=== PATIENT | female | born 1970 | race Caucasian/White ===

== ENCOUNTER 2020-06-13 08:29 | Inpatient (IN) | payer MEDICAID ==
[~2020-06-13] VITALS: Ht 177.8 cm; Wt 75.4 kg
[2020-06-13 08:32] VITALS: BP 179/92
[2020-06-13 09:17] LABS: ABSOLUTE BASOPHILS 0.1 thou/uL (0.0-0.2); ABSOLUTE EOSINOPHILS 0.1 thou/uL (0.0-0.7); ABSOLUTE LYMPHOCYTES 1.5 thou/uL (0.8-5.3); ABSOLUTE MONOCYTES 0.3 thou/uL (0.0-1.2); ABSOLUTE NEUTROPHILS 3.3 thou/uL (1.6-8.1); BASOPHILS 1.2 %; EOSINOPHILS 2.4 %; HEMATOCRIT 23.9 % (37.0-47.0); HEMOGLOBIN 7.8 gm/dL (12.0-15.0); LYMPHOCYTES 28.4 %; MCH 30.2 pg (26.0-34.0); MCHC 32.6 g/dL (28.0-37.0); MCV 92.4 fL (80.0-100.0); MONOCYTES 5.8 %; MPV 7.4 fl. (7.2-11.1); NUCLEATED RBCS 0 /100WBC; PLATELET COUNT* 286 thou/uL (150-400); POLYS 62.2 %; RBC 2.59 mil/uL (4.20-5.00); RDW-CV 15.7 % (10.5-14.5); WBC 5.4 thou/uL (4.0-11.0)
[2020-06-13 09:26] LABS: CALCIUM 7.4 mg/dL (8.5-10.1); CREATININE 3.2 mg/dL (0.6-1.3); POTASSIUM 4.4 mmol/L (3.5-5.1)
[2020-06-13 09:27] LABS: APTT 27.8 Seconds (25.0-31.3); PROTIME 11.1 Seconds (9.20-11.50)
[2020-06-13 09:31] LABS: ALBUMIN 2.3 g/dL (3.4-5.0); TOTAL BILIRUBIN 0.2 mg/dL (<0.1-1.0); TOTAL PROTEIN 6.1 g/dL (6.4-8.2)
[2020-06-13] MEDS ORDERED: PROTONIX40 M2 PO (09:46)
[2020-06-13] MEDS ORDERED: LEVO-T25 MCG PO (09:47)
[2020-06-13] MEDS ORDERED: VITAMIN D210 MCG PO (09:47)
[2020-06-13] MEDS ORDERED: SERTRALINE HCL100 MG PO (09:48)
[2020-06-13] MEDS ORDERED: LIPITOR 20 MG T20 M1 PO (09:48)
[2020-06-13] MEDS ORDERED: CARVEDILOL25 MG PO (09:48)
[2020-06-13] MEDS ORDERED: FUROSEMIDE 20 M20 MG PO (09:49)
[2020-06-13] MEDS ORDERED: SODIUM BICARBO650 M3 PO (09:49)
[2020-06-13] MEDS ORDERED: FOLIC ACID1 MG PO (09:49)
[2020-06-13] MEDS ORDERED: MIRTAZAPINE7.5 MG PO (09:50)
[2020-06-13] MEDS ORDERED: FAMOTIDINE 20 M20 MG PO (09:50)
[2020-06-13] MEDS ORDERED: DESYREL150 MG PO (09:50)
[2020-06-13] MEDS ORDERED: NOVOLOG100 UNIT/M SUBQ (09:50)
[2020-06-13] MEDS ORDERED: HUMALOG100 UNIT/1 SUBQ (09:51)
[2020-06-13] MEDS ORDERED: LANTUS SUBQ (09:51)
--- NOTE | 2020-06-13 10:27 | EKG ---
[place] [address] ELECTROCARDIOGRAM REPORT Name: MARYAN FERNANDO Room: [place] [address] ADM IN [facility]#: [id number] Admission: 06/13/20 Attend Phys: Jt Hinds Discharge: Date of : 72 Date of Service: 06/13/20 0846 Report #: [id number] THIS REPORT FOR: //name// [facility] ED Test Date: 2020-06-13 Test Time: 08:46:00 Pat Name: MARYAN FERNANDO Department: Room: [facility] Gender: F Referral Coordinator: MARCELINA : 1970 Requested By: Norris Pandya Order Number: [id number] MD: De Iniguez Measurements Intervals [place] Rate: 71 P: 33 MO: 172 QRS: 28 QRSD: 94 T: 50 QT: 444 QTc: 483 Interpretive Statements Sinus rhythm Consider anterior infarct No previous ECG available for comparison Electronically Signed On 06-13-2020 10:27:28 CHOCOLATE MOLDER by De Iniguez [email or web address] <ELECTRONICALLY SIGNED> By: De Iniguez MD, [facility] 06/13/20 1027 5 5 De Iniguez MD, [facility] /EPI
[2020-06-13 12:33] VITALS: BP 132/82
[2020-06-13 13:50] VITALS: BP 142/89
--- NOTE | 2020-06-13 18:53 | NUR ---
PATIENT ARRIVED FROM ER THIS AFTERNOON. PATIENT SETTLED TO ROOM. PATIENT HAD COMPLAINTS OF LEFT HIP PAIN, TREATED PARTIALLY WITH FENTANYL. HISTORY, ASSESSMENT AND VITALS OBTAINED AND CHARTED. PATIENT IS IN SURGERY AT THIS TIME.
[2020-06-13 19:44] VITALS: BP 159/89
[2020-06-14 00:27] VITALS: BP 122/78
[2020-06-14 05:50] VITALS: BP 125/78
[2020-06-14 06:08] LABS: HEMOGLOBIN 5.5 gm/dL (12.0-15.0)
[2020-06-14 06:09] LABS: HEMATOCRIT 17.1 % (37.0-47.0)
[2020-06-14 08:05] VITALS: BP 131/77
--- NOTE | 2020-06-14 08:20 | NUR ---
ASSUMED CARE OF PT AT APPROX 1935, PT DROWSY D/T ANESTHSIA BUT ORIENTED, VSS ON 3L NC, PAIN MEDS REQUESTED AND GIVEN ORDERED. AT APPRX 2222 DR. AVILA CONFIRMED YOUR CALL MESSAGE OF DR. GRECO DEFERING MANAGEMENT OF DVT PROPHYLAXIS TO THE MEDICINE TEAM D/T DIALYSIS REGIMAN. AT 0604 NOTIFIED BY LAB OF PT Hgb OF 5.5 AND Hct OF 17.1, DR. AVILA CONTACT AT 0610 AND ORDER GIVEN FOR INFUSION OF 2 UNITS PRBC. DAY SHIFT INFORMED TO CONTACT DIALYSIS WHEN BLOOD PRODUCT READY FOR PHOTOGRAPHY COORDINATOR - DIALYSIS WILL INFUSE BLOOD DURING DIALYSIS TX. REPORT GIVEN AND CARE OF PATIENT TRANSFER TO DAY SHIFT NURSE AT APPROX 0715.
[2020-06-14 11:02] LABS: HEMATOCRIT 23.1 % (37.0-47.0); HEMOGLOBIN 7.8 gm/dL (12.0-15.0)
--- NOTE | 2020-06-14 13:08 | NUR ---
Nutrition: Pt admitted with Lt hip FX. Consult received for diabetes/renal. Pt was out of room at time of visit; spoke with VENKATA Blanca. She stated pt is tolerating diet, but doesn't like the food so far. Pt is currently on Regular diet, but should be on Renal or CHO count. RN agreed to restricting diet to at least CHO controlled. Hopeful pt will find food choices she will eat. Did not restrict all the way to renal diet for pt preference. Meds noted. Labs: alb 2.3, prealb 17.2, BG 200s, Hgb 7.8. ESRD on HD is not a new DX. Wt: 166#. RD available for nutrition educ if pt desires. Consider Mild risk at this time.
[2020-06-14 13:30] LABS: CALCIUM 7.3 mg/dL (8.5-10.1); CREATININE 3.7 mg/dL (0.6-1.3); POTASSIUM 4.5 mmol/L (3.5-5.1)
[2020-06-14 13:33] LABS: MAGNESIUM 1.8 mg/dL (1.8-2.4)
--- NOTE | 2020-06-14 14:11 | CON ---
[address] [address] CONSULTATION Name: MARYAN FERNANDO Room: [address] IN [facility]#: [id number] Admission: 06/13/20 Attend Phys: Fabien Moulton Discharge: Date of : 72 Report #: [id number] THIS REPORT FOR: //name// cc: ROSELYN - No family physician/PCP ROSELYN - No family physician/PCP ~ DATE OF SERVICE: 06/13/2020 REQUESTING PHYSICIAN: Dr. Alonso. REASON FOR CONSULTATION: End-stage renal disease. HISTORY OF PRESENT ILLNESS: The patient is a 50-year-old female with medical history significant for end-stage renal disease. She presented after she fell. She landed on her head and back and on her hip. Workup showed that she had a left femoral intertrochanteric fracture. PAST MEDICAL HISTORY: 1. End-stage renal disease. 2. Diabetes mellitus type 2. 3. History of hypertension. SOCIAL HISTORY: No tobacco or alcohol abuse. FAMILY HISTORY: Noncontributory. REVIEW OF SYSTEMS: Positive for left hip pain. PHYSICAL EXAMINATION: GENERAL: Awake, alert. VITAL SIGNS: Reviewed. HEENT: Pupils round. NECK: Supple. LUNGS: Clear. CARDIOVASCULAR: Regular rate. ABDOMEN: Soft. LABORATORY DATA: Reviewed. ASSESSMENT: 1. End-stage renal disease. She was dialyzed yesterday. Dialysis Wednesday, Wednesday, and Wednesday schedule. 2. Left femoral fracture. 3. Hypertension. [facility] [address] [place] [address] CONSULTATION Name: MARYAN FERNANDO Room: [address] IN [facility]#: [id number] Admission: 06/13/20 Attend Phys: Fabien Moulton Discharge: Date of : 72 Report #: [id number] PLAN: Dialysis tomorrow. Surgical treatment per orthopedic surgeon. <ELECTRONICALLY SIGNED> By: Chris Orosco MD 06/14/20 1411 1440 [id number] Orosco MD /nt
--- NOTE | 2020-06-14 14:43 | NUR ---
Pt is A&O. Resides at home with her mom. Independent. Pt has a walker, no home o2. No hx of HH or SNF. Pt states that she fell in the middle of the night but does not remember how she feel, Pt stated that her mom found her on the floor the following morning. Therapies to see. Pt only has [place] CAN, so if she needs anything at dc, she will only qualify for a HH nurse or ARU. Pt's PCP is Dr Zavala at [facility]. Following for dc needs.
[2020-06-14 16:00] VITALS: BP 148/88
--- NOTE | 2020-06-14 17:04 | NUR ---
PATIENT RESTING IN BED. PATIENT HAS ANXIETY ABOUT HOSPITAL SITUATION AND IS TEARFUL AT TIMES. PATIENTHAS COMPLAINTS OF PAIN TO LEFT HIP, TREATED ADEQUATELY WITH MORPHINE. PATIENT WORKED WITH PHYSICAL THERAPY THIS AFTERNOON. PATIENT HAD DIALYSIS THIS AM WITHOUT INCIDENT. PATIENT HAD 2 UNITS BLOOD TRANSFUSED WITH DIALYSIS. PATIENT HAS GOOD APPETITE. PATIENT DENIES ANY NEEDS AT THIS TIME. CALL LIGHT WITHIN REACH.
[2020-06-14 20:00] VITALS: BP 163/92
[2020-06-15 06:33] LABS: HEMATOCRIT 22.2 % (37.0-47.0); HEMOGLOBIN 7.6 gm/dL (12.0-15.0)
--- NOTE | 2020-06-15 07:40 | NUR ---
ASSUMED PT'S CARE @ 1900. ALERT AND ORIENTED. VSS ON 2L. O2 TURNED DOWN TO 1L. SATTING IN HIGH 90'S. PRN PAIN MEDS GIVEN THIS SHIFT. PT CAN BE VERY ANXIOUS. INCONTINENT OF BLADDER THIS SHIFT. DID USE THE BSC ONE TIME. VERY PAINFUL TRANSFER PER PT. PT SLEPT OFF AND ON. PT'S BG LOW IN 30'S THIS AM. HYPOGLYCEMIA PROTOCOL IN PLACE. BG IS 90 NOW. Q2 TURN. STEVE HOSE IN PLACE. SCD'S IN PLACE. FALL PRECAUTIONS IN PLACE. CALL LIGHT WITHIN REACH. WILL CONTINUE TO MONITOR.
[2020-06-15 15:51] VITALS: BP 110/66
--- NOTE | 2020-06-15 16:40 | NUR ---
Pt remained A&O x4 for entire shift. Vital signs stable. Pt taken off O2 and sat 96%. Pt is pleasant with staff but resistant to getting out of bed. Pt given PRN IV morphine for pain control. Pt has had poor diet today and not wanting to eat much, but patient states she has a poor diet at home as well. Pt Blood Glucose was low (between 67-97) throughout the day. Pt was encouraged by nursing staff to eat snacks and more during meals. Dr. Hinds notified of low trends, no orders received. Pt refusing to get up to chair for dinner. Bed in low position, siderails up, call light within reach. Will continue to monitor.
--- NOTE | 2020-06-15 16:51 | NUR ---
PATIENT PARTICIPATED IN THERAPY THIS SHIFT. PATIENT ENCOURAGED TO SIT IN CHAIR THIS EVENING FOR DINNER. PATIENT STATED SHE WAS NOT GETTING UP AGAIN THIS EVENING. PATIENT EDUCATED ON THE IMPORTANCE OF ACTIVITY AFTER SURGERY. PATIENT REFUSED AGAIN. PATIENT EDUCATED AND ENCOURAGED ON IS, PATIENT WAS COMPLIANT WITH THIS.
[2020-06-15 20:00] VITALS: BP 113/64
--- NOTE | 2020-06-16 05:53 | NUR ---
ASSUMED PT'S CARE @ 1900. ALERT AND ORIENTED. VSS ON RA. OCCASSIONAL O2 DROP BUT DOES NOT SEEM TO BE TAKING ENOGUH DEEP BREATH. DEEP BREATHING ENCOURAGED. USE OF IS ENCOURAGED. PT PUT ON 1L O2 TO HELP BOOST O2 SAT. PAIN MEDS GIVEN THIS SHIFT. FALL PRECAUTION IN PLACE. CALL LIGHT WITHIN REACH. HOURLY ROUNDINGS MADE. WILL CONTINUE TO MONITOR.
[2020-06-16 07:45] VITALS: BP 114/59
[2020-06-16 15:53] VITALS: BP 110/62
--- NOTE | 2020-06-16 17:01 | NUR ---
Pt remained A&O x4 for entire shift. Pt requested mark hose be taken off this morning. Skin was assessed and lotion applied. Mark hose were put back in place a couple of hours later. Pt up to bedside commode with physical therapy this morning, then in to the chair for breakfast. Pt stayed in bed until after luuch, about 4 hours. Pt tolerated chair well. Pt only needed Morphine 4mg 2x today. Pt's appetite much better, glucose stable. Pt's SCD in place. Bed is in low position, side rails up, call light within reach. Will continue to monitor.
[2020-06-16 20:00] VITALS: BP 117/67
[2020-06-17 04:59] LABS: ABSOLUTE EOSINOPHILS 0.3 thou/uL (0.0-0.7); ABSOLUTE LYMPHOCYTES 1.1 thou/uL (0.8-5.3); ABSOLUTE MONOCYTES 0.5 thou/uL (0.0-1.2); ABSOLUTE NEUTROPHILS 4.2 thou/uL (1.6-8.1); BASOPHILS 0.7 %; EOSINOPHILS 4.3 %; HEMATOCRIT 20.6 % (37.0-47.0); MCH 30.5 pg (26.0-34.0); MCHC 33.6 g/dL (28.0-37.0); MCV 90.8 fL (80.0-100.0); MONOCYTES 7.6 %; MPV 7.7 fl. (7.2-11.1); NUCLEATED RBCS 0 /100WBC; PLATELET COUNT* 203 thou/uL (150-400); POLYS 69.4 %; RBC 2.26 mil/uL (4.20-5.00); RDW-CV 15.4 % (10.5-14.5)
[2020-06-17 05:12] LABS: HEMOGLOBIN 6.9 gm/dL (12.0-15.0)
[2020-06-17 05:16] LABS: CALCIUM 7.4 mg/dL (8.5-10.1); CREATININE 4.7 mg/dL (0.6-1.3); POTASSIUM 4.3 mmol/L (3.5-5.1)
--- NOTE | 2020-06-17 05:44 | NUR ---
ASSUMED PT'S CARE @ 1900. ALERT AND ORIENTED. VSS ON 2L 02. MEDS GIVEN PER EMAR. PT SLEPT VERY WELL THIS SHIFT. INCONTINENT OF BLADDER. NO BM NOTED THIS SHIFT. L EJ IV WITH FLUIDS INFUSING PER EMAR. PT AGREED TO SOME TURNS. FALL PRECAUTION IN PLACE. THIS AM HGB LOW AT 6.9. ONCALL DOC PAGED. AWAITING NEW ORDERS. WILL CONTINUE TO MONITOR.
[2020-06-17] MEDS ORDERED: OXYCODONE HCL 55 MG PO (10:38)
[2020-06-17] MEDS ORDERED: VOLTAREN GEL 1100 G2 TOP (10:38)
[2020-06-17] MEDS ORDERED: NEURONTIN 300M300 M2 PO (10:38)
[2020-06-17] MEDS ORDERED: METAMUCIL PACK3.4 GM PO (10:38)
[2020-06-17] MEDS ORDERED: LORAZEPAM 0.50.5 MG PO (10:38)
[2020-06-17] MEDS ORDERED: PAIN RELIEVER500 MG PO (10:38)
[2020-06-17] MEDS ORDERED: CYCLOBENZAPRINE10 MG PO (10:38)
--- NOTE | 2020-06-17 12:11 | NUR ---
PUT IN REHAB CONSULT TODAY. BHAVNA/JEFFERY SAID REHAB WILL EVAL PT. HER TODAY. IF GOOD CANDIDATE WILL SUBMIT FOR INSURANCE AUTH.
--- NOTE | 2020-06-17 12:56 | OP ---
[address] [address] OPERATIVE REPORT Name: MARYAN FERNANDO Room: [address] IN [facility]#: [id number] Admission: 06/13/20 Attend Phys: Fabien Moulton Discharge: Date of : 72 Report #: [id number] THIS REPORT FOR: //name// cc: ROSELYN - No family physician/PCP ROSELYN - No family physician/PCP ~ CC: ROSELYN physician/PCP Jt Hinds DICTATED BY: Kike Shipman DO DATE OF SERVICE: 06/13/2020 ADDENDUM The patient was successfully extubated and transferred off the operative table and to PACU in stable condition. I attest that Dr. Steve Truong was present in the operative suite throughout all critical aspects of this case. <ELECTRONICALLY SIGNED> By: Clive Najera DO 06/17/20 1256 2207 [id number] Truong DO /nt
--- NOTE | 2020-06-17 12:56 | OP ---
[address] [address] OPERATIVE REPORT Name: MARYAN FERNANDO Room: [address] IN [facility]#: [id number] Admission: 06/13/20 Attend Phys: Fabien Moulton Discharge: Date of : 72 Report #: [id number] THIS REPORT FOR: //name// cc: ROSELYN - Shelly family physician/PCP ROSELYN - No family physician/PCP ~ CC: [facility] physician/PCP Jt Hinds DICTATED BY: Kike Shipman DO DATE OF SERVICE: 06/13/2020 PREOPERATIVE DIAGNOSIS: Left displaced comminuted intertrochanteric femur fracture. OPERATION PERFORMED: Open reduction and internal fixation left hip with cephalomedullary nail. IMPLANTS: Tyrone gamma nail 10 x 170 mm and 40 mm distal locking screw. SURGEON: Steve Truong D.O. ASSISTANTS: Kike Shipman D.O. and Kike Gay D.O. ANESTHESIA: General. SPECIMENS: None. ESTIMATED BLOOD LOSS: 50 mL. COMPLICATIONS: None. CONDITION: The patient is stable to PACU. ANTIBIOTICS: 2 g Ancef IV preop. DRAINS: None. FLUIDS: Crystalloid per Anesthesia. INDICATIONS FOR SURGERY: This patient is a 50-year-old female who sustained a ground-level fall earlier today. She noted immediate onset of left hip pain and an inability to bear weight on her left lower extremity. She was subsequently brought to the Emergency Department where radiographs were obtained and demonstrated a left intertrochanteric femur fracture that was displaced and comminuted in nature. She had no notable open skin wounds over this area, but [address] [place] [address] OPERATIVE REPORT Name: MARYAN FERNANDO Room: [address] IN [facility].#: [id number] Admission: 06/13/20 Attend Phys: Fabien Moulton Discharge: Date of : 72 Report #: [id number] slight ecchymosis was noted on the lateral aspect of her thigh. We discussed surgical fixation. Risks, benefits, alternatives and possible complications were discussed at length with the patient and she is agreeable to proceed with operative fixation. Of note, she has a past medical history consistent with end-stage renal disease and is on dialysis. DESCRIPTION OF THE PROCEDURE: This patient was met in the preoperative area. The correct site of the left lower extremity was marked. Consent was obtained both verbally and written. She was transferred to the operative suite. She was given the benefit of general anesthesia and then transferred onto a well-padded Ortley table and secured to the table. The left leg was placed in an appropriately sized boot and secured and the right leg was placed in the leg carter. Fluoroscopy was then used to aid in the reduction using the Ortley table with a combined traction, adduction and internal rotation technique. Once adequate reduction of the fracture was obtained, the left hip was then sterilely prepped and draped in the normal sterile fashion. A timeout was performed to identify the correct the patient, procedure and operative site. All in the room were in agreement. The procedure began with an incision just proximal to the tip of the greater trochanter. We then used a guidewire to identify the starting point with fluoroscopy imaging. We then used the opening reamer. The nail was then placed in the appropriate position and confirmed with orthogonal fluoroscopy. An incision was then made for the lag screw using the targeting guide. We then used a guidewire into the femoral neck and head. The correct position of this was confirmed, we then reamed for a 95-mm screw. The screw was then placed through the nail and into the head and neck using the assistance of the targeting arm connected to the nail. This was then secured with the set screw placed at the proximal aspect of the gamma nail and this was secured and determined to lock the lag screw in place rotationally. The distal locking screw site was then identified using the targeting guide. An incision was made through the skin and fascia to the level of the bone with a 15-blade scalpel. A drill was used through the targeting guide to create the hole for the static distal interlocking screw. This measured 40 mm and was then placed appropriately with good bicortical fixation. Final radiographs were obtained and saved. The incisions were copiously irrigated with normal saline. The deep fascia of the proximal wound was closed with a #1 Vicryl in interrupted [id number] fashion. We then reapproximated the subcutaneous tissue with 2-0 Monocryl in a simple interrupted and inverted fashion followed by kiel at the level of the skin. Sterile dressings were then applied. She tolerated this procedure well without any complications. Anesthesia was reversed per the Anesthesia team. She was successfully extubated and transferred off the operative table. <ELECTRONICALLY SIGNED> By: Clive Najera DO 06/17/20 1256 2205 [id number] Truong DO /rene
[2020-06-17 15:43] VITALS: BP 104/74
--- NOTE | 2020-06-17 18:40 | NUR ---
PATIENT ALERT AND ORIENTED X 4. VITAL SIGNS STABLE ON ROOM AIR. UP MAX ASSIST TO THE BEDSIDE COMODE. IV PATENT WITH FLUIDS INFUSING PER MAR. DENIES NAUSEA AT THIS TIME. PAIN BEING MANAGED WITH PO AND IV MEDICATION. HAD DIALYSIS TODAY AND 1.5 LITERS REMOVED. PATIENT ALSO RECEIVED ONE UNIT OF BLOOD IN DIALYSIS. DRESSING TO LEFT HIP DRY AND INTACT. HOURLY ROUNDS MAINTAINED THROUGHOUT THE SHIFT. CALL LIGHT WITHIN REACH. NURSING WILL CONTINUE TO MONITOR.
[2020-06-17 21:15] VITALS: BP 128/68
[2020-06-17 23:36] VITALS: BP 107/57
[2020-06-18 05:56] LABS: HEMATOCRIT 24.8 % (37.0-47.0); HEMOGLOBIN 8.3 gm/dL (12.0-15.0)
[2020-06-18 06:16] VITALS: BP 132/69
--- NOTE | 2020-06-18 07:35 | NUR ---
PT RECEIVING IV PAIN MED AT HS WITH GOOD RELIEF. L HIP DRSG CDI, EDEMATOUS. STEVE HOSAshleigh BLE. UP WITH ASSIST BSC. LEJ IVF INFUSING PER PUMP. R CHEST TESSIO DIALYSIS CATH. AM LABS. ROOM AIR SAT 96% OVERNIGHT. AOX4, ABLE TO USE CALL LITE AND MAKE NEEDS KNOWN.
[2020-06-18 07:40] VITALS: BP 133/94
[2020-06-18 14:30] VITALS: BP 141/84
--- NOTE | 2020-06-18 14:45 | NUR ---
PATIENT WAS TALKING WITH NURSE TECH AND PASSED OUT. RAPID RESPONSE CALLED. PATIENT STERNAL RUBBED AND AWAKENED. PATIENT PUT BACK TO BED FROM RECLINER. VITALS AND BLOOD SUGAR CHECKED AND WITHIN NORMAL LIMITS CHARTED. PATIENT VERY DIAPHORETIC. STAT EKG TAKEN, SHOWS SINUS RYTHYM. DR WERNER NOTIFIED AND ORDERS RECEIVED.
[2020-06-18 15:00] VITALS: BP 107/49
--- NOTE | 2020-06-18 15:44 | EKG ---
[place] [address] ELECTROCARDIOGRAM REPORT Name: MARYAN FERNANDO Room: [address] ADM IN [facility]#: [id number] Admission: 06/13/20 Attend Phys: Jt Hinds Discharge: Date of : 72 Date of Service: 06/18/20 1512 Report #: [id number] THIS REPORT FOR: //name// [facility] Test Date: 2020-06-18 Test Time: 15:12:15 Pat Name: MARYAN FERNANDO Department: Room: [address] Gender: F Field Captain: BASIA : 1970 Requested By: Americo Mims Order Number: [id number] Reading MD: Maxwell Infante Measurements Intervals [place] Rate: 66 P: 24 IN: 167 QRS: 25 QRSD: 87 T: 51 QT: 435 QTc: 456 Interpretive Statements Sinus rhythm Consider left ventricular hypertrophy Compared to ECG 06/13/2020 08:46:00 Myocardial infarct finding no longer present Electronically Signed On 06-18-2020 15:44:23 OUTSEWER by Maxwell Infante [email or web address] <ELECTRONICALLY SIGNED> By: Angie Infante MD, FAC 06/18/20 1544 151 151 Angie Infante MD, [facility] /EPI
[2020-06-18 15:45] VITALS: BP 64/37
[2020-06-18 15:50] VITALS: BP 90/53
--- NOTE | 2020-06-18 17:15 | NUR ---
PATIENT DISCHARGED TO ACUTE INPATIENT REHAB. REPORT GIVEN TO DEANNA. PATIENT BELONGINGS MOVED TO ROOM 324. PATIENT RRANSFERRED TO ROOM BY BED.
== END 2020-06-18 17:15 | DRG 480 ==
LOC: M.ERS 08:29 → M.TBA-ER 09:35 → M.3W 09:35 → M.TBA-ER 10:21 → M.3W 12:58
PROVIDERS: Family Medicine; Internal Medicine Nephrology; Orthopaedic Surgery; ADMIT Internal Medicine; ATTEND Internal Medicine
PROC: 30233N1 Transfusion of Nonautologous Red Blood Cells into Peripheral Vein, Percutaneous Approach (ICD-10-PCS; principal; 2020-06-13)
PROC: 0QS704Z Reposition Left Upper Femur with Internal Fixation Device, Open Approach (ICD-10-PCS; principal; 2020-06-13)
DX: M84.459A Pathological fracture, hip, unspecified, initial encounter for fracture (principal); N18.6 End stage renal disease; G93.40 Encephalopathy, unspecified; D62 Acute posthemorrhagic anemia; I12.0 Hypertensive chronic kidney disease with stage 5 chronic kidney disease or end stage renal disease; Z20.828 Contact with and (suspected) exposure to other viral communicable diseases; E11.22 Type 2 diabetes mellitus with diabetic chronic kidney disease; E11.649 Type 2 diabetes mellitus with hypoglycemia without coma; L98.8 Other specified disorders of the skin and subcutaneous tissue; E03.9 Hypothyroidism, unspecified; Z90.49 Acquired absence of other specified parts of digestive tract; K59.00 Constipation, unspecified; T80.92XA Unspecified transfusion reaction, initial encounter; Z28.21 Immunization not carried out because of patient refusal; Z79.899 Other long term (current) drug therapy

== ENCOUNTER 2020-06-18 16:01 | Inpatient (IN) | payer MEDICAID ==
[~2020-06-18] VITALS: Ht 152.4 cm; Wt 76.9 kg
[~2020-06-18 16:01] MED LIST: CARVEDILOL25 MG PO; CYCLOBENZAPRINE10 MG PO; DESYREL150 MG PO; FAMOTIDINE 20 M20 MG PO; FOLIC ACID1 MG PO; FUROSEMIDE 20 M20 MG PO; HUMALOG100 UNIT/1 SUBQ; LANTUS SUBQ; LEVO-T25 MCG PO; LIPITOR 20 MG T20 M1 PO; LORAZEPAM 0.50.5 MG PO; METAMUCIL PACK3.4 GM PO; MIRTAZAPINE7.5 MG PO; NEURONTIN 300M300 M2 PO; NOVOLOG100 UNIT/M SUBQ; OXYCODONE HCL 55 MG PO; PAIN RELIEVER500 MG PO; PROTONIX40 M2 PO; SERTRALINE HCL100 MG PO; SODIUM BICARBO650 M3 PO; VITAMIN D210 MCG PO; VOLTAREN GEL 1100 G2 TOP
--- NOTE | 2020-06-18 18:27 | NUR ---
ASSUMMED CARE OF PT ON ARRIVAL TO UNIT, PT ALERT, DRIFTS OFF TO SLEEP IF NOT STIMULATED, STATES IT IS WEDNESDAY, ASKING IF THE GIRL IN THE ROOM WENT TO TALK WITH HER SISTER, ASKING WHERE HER BROTHER IS, DISORIENTED, PT ABLE TO ANSWER ADMISSION QUESTIONS WITH SOME DIFFICULTY, STATES HAS HAD MULTIPLE FALLS AT HOME WHERE SHE PASSES OUT, PT HAS TESSIO IN RIGHT CHEST AND EXTERNAL JUGULAR ON LEFT, O2 ON AT 2 LITERS SATS OF 96%, DRESSING INTACT TO LEFT HIP WITH SOME OLD DRAINAGE, EDEMA AND REDNESS IN LEFT HIP, SCRATCH ANDRADE ON RIGHT THIGH ANKLE AREA, PT STATES SHE SCRATCHES HERSELF FREQUENTLY, PT STATES ONLY HAS PAIN WITH MOVEMENT, PT STATES HAS HAD NO BM FOR 6 DAYS, ADMISSION ASSESSMENT COMPLETE, HOURLY ROUNDING, WILL CONTINUE TO MONITOR.
[2020-06-18 18:50] VITALS: BP 121/65
[2020-06-18 19:00] VITALS: BP 129/57
--- NOTE | 2020-06-18 21:05 | NUR ---
AWAKENED FOR REASSESSMENT AND MEDICATION PASS. PATIENT DENIES PAIN. MODERATE TO LARGE AMOUNT OF DRIED DRAINAGE ON LEFT HIP DRESSING WHICH IS INTACT. 2-3+ EDEMA AROUND LEFT HIP SITE NOTED. 02 NASAL CANNULA AT 2 LITERS. CALL LIGHT WTIHIN REACH.
[2020-06-19 04:26] LABS: CALCIUM 7.9 mg/dL (8.5-10.1); CREATININE 4.4 mg/dL (0.6-1.3); POTASSIUM 3.7 mmol/L (3.5-5.1)
[2020-06-19 04:35] LABS: HEMATOCRIT 23.4 % (37.0-47.0); HEMOGLOBIN 7.8 gm/dL (12.0-15.0); MCH 30.5 pg (26.0-34.0); MCHC 33.6 g/dL (28.0-37.0); MCV 90.8 fL (80.0-100.0); MPV 7.8 fl. (7.2-11.1); RBC 2.57 mil/uL (4.20-5.00); RDW-CV 15.2 % (10.5-14.5); WBC 5.1 thou/uL (4.0-11.0)
--- NOTE | 2020-06-19 05:23 | NUR ---
RESTED QUIETLY. PAIN MEDICATION GIVEN AT 0411 FOR COMPLAINT OF LEFT HIP PAIN WITH RELIF. INCONTINENT OF URINE X ONE. PENG CARE GIVEN. HOURLY ROUNDING IN PROGRESS.
[2020-06-19 08:00] VITALS: BP 99/56
--- NOTE | 2020-06-19 11:27 | NUR ---
Nutrition: Pt admitted to rehab with Lt hip FX. CHO controlled diet. Unsure of po intake this morning. Wt: 166#. ESRD on HD. BUN 32, cr 4.4, BG 113-173, alb 2.3, prealb 17.2. GOALS: >75% intake of meals, good BG control. Oral supplements available if po intake <60% of meals. Consider mild risk at this time. Will follow weekly.
--- NOTE | 2020-06-19 15:58 | NUR ---
ASSUMMED CARE OF PT AT 0730, PT ALERT ORIENTED , MORE AWAKE TODAY BUT STILL DRIFTS OFF TO SLEEP EASILY, PT DOES NOT C/O PAIN UNLESS ASKED, TRANSFERS WITH ASSIST OF 1 GB WALKER, INCONTINENT AND AND ALSO VOIDS PER COMMODE, TESSIO IN RIGHT CHEST INTACT, SALINE LOCK TO JUGULAR INTACT, PT ON RA WITH SATS OF 97%, MEDICATED PRIOR TO THERAPY THIS AM FOR PAIN, NO BM, PT GIVEN MEDS, NO RESULTS, WILL OBTAIN UA WITH NEXT VOID, PT IN DIALYSIS THIS PM, ORTHO CONSULTED AND WILL SEE PT ON WEDNESDAY, CARDILOGY HERE TO SEE PT, LEFT HIP REDDENED , DRESSING INTACT WITH OLD DRAINAGE, PARTICIPATED IN ALL THERAPIES, HOURLY ROUNDING COMPLETED, ASSESSMENT COMPLETE, WILL CONTINUE TO MONITOR.
[2020-06-19 19:00] VITALS: BP 132/71
--- NOTE | 2020-06-19 20:15 | NUR ---
INCONTINENT OF LOOSE STOOL. ASSISTED TO BEDSIDE COMMODE WITH GAITBELT, WALKER. PATIENT ABLE TO DO MOST OF PENG CARE. PATIENT TEARFUL DUE TO THE INCONTINENCE AND THE ELEVATED LEFT HIP PAIN. GAVE PRN ATIVAN AND OXY IR. WORDS OF REASSURANCE AND ENCOURAGEMENT GIVEN. LEFT HIP INCISION INTACT WITH LARGE AMOUNT OF DRIED DRAINAGE. CALL LIGHT WITHIN REACH.
[2020-06-20 02:02] LABS: URINE BILIRUBIN NEGATIVE (Negative); URINE BLOOD 2+ (Negative); URINE CLARITY SL CLOUDY; URINE COLOR YELLOW; URINE GLUCOSE-RANDOM NEGATIVE (Negative); URINE KETONES NEGATIVE (Negative); URINE LEUKOCYTES-REFLEX 2+ (Negative); URINE NITRITE-REFLEX NEGATIVE (Negative); URINE PROTEIN 3+ (Negative); URINE UROBILINOGEN 0.2 E.U./dl (0.2-1.0)
[2020-06-20 02:04] LABS: SQUAMOUS >10 Many /LPF (0-3)
[2020-06-20 02:11] LABS: URINE WBC-REFLEX >25 Many /HPF (0-5)
[2020-06-20 02:12] LABS: BACTERIA-REFLEX >30 Many /HPF (None Seen)
[2020-06-20 02:15] LABS: CASTS None Seen /LPF (None Seen); CRYSTALS None Seen /LPF (None Seen); URINE RBC 3-10 Few /HPF (0-2); YEAST-REFLEX Present (None Seen)
--- NOTE | 2020-06-20 05:28 | NUR ---
INCONTINENT OF STOOL AGAIN AND HAD STOOL PER BEDSIDE COMMODE. NO FURTHER COMPLAINT OF PAIN. NO MORE EPISODES OF TEARFULLNESS. UA OBTAINED AND RESULTS ARE INDICATIVE OF A UTI AND ALSO YEAST WAS PRESENT. WILL REPORT TO DOCTOR. HOURLY ROUNDING IN PROGRESS.
[2020-06-20 10:03] VITALS: BP 116/65
[2020-06-20 20:14] VITALS: BP 118/73
--- NOTE | 2020-06-20 20:20 | NUR ---
SITTING UP IN BED AND WATCHING TV. PAIN MEDICATION GIVEN FOR COMPLAINT OF LEFT KNEE PAIN. CALL LIGHT WITHIN REACH.
--- NOTE | 2020-06-21 05:02 | NUR ---
RESTED ON/OFF. OXY IR GIVEN AT 0340 FOR COMPLAINT OF LEFT LEG PAIN RATED "8" WITH RELIEF. HOURLY ROUNDING IN PROGRESS.
[2020-06-21 08:00] VITALS: BP 134/76
--- NOTE | 2020-06-21 14:44 | NUR ---
INITIAL ASSESSMENT: PATIENT ADMITTED TO THE ACUTE INPT REHAB UNIT ON 06/18/20 WITH A DIAGNOSIS OF LEFT HIP FRACTURE. PT A&O, AND NORMALLY INDEPNDENT WITH ADL'S PT RESIDES AT HOME WITH HER MOTHER. PT OWNS 0 DME. PT HAS 0 HX OF HH OR SNF. PT ONLY HAS MEDICAID INSURANCE AND IS ONLY ABLE TO HAVE HH WITH NURSING AT D/C. [facility] CM WILL REMAIN AVAILABLE TO ASSIST AND FOLLOW NEEDED.
--- NOTE | 2020-06-21 16:29 | NUR ---
ALERT AND ORIENTED X4. C/O LEFT HIP PAIN AND PO PAIN MEDICATION GIVEN WITH SOME RELIEF. DRESSING DRY AND INTACT OVER LEFT HIP. HAS TESSIO CATHETER IN RIGHT UPPER CHEST. UP WITH 1 ASSIST, GAIT BELT AND WALKER. USES CALL LIGHT FOR ASSIST. FALL PRECAUTIONS IN PLACE. BED AND CHAIR ALARM USED.
[2020-06-21 20:00] VITALS: BP 144/80
[2020-06-22 04:53] LABS: CALCIUM 8.2 mg/dL (8.5-10.1); CREATININE 4.4 mg/dL (0.6-1.3); POTASSIUM 4.1 mmol/L (3.5-5.1)
[2020-06-22 07:30] VITALS: BP 139/70
[2020-06-22 19:51] VITALS: BP 146/86
--- NOTE | 2020-06-22 20:25 | NUR ---
SITTING UP IN BED EATING A TURKEY SANDWICH AND WATCHING TV. PAIN MEDICATION GIVEN FOR COMPLAINT OF LEFT LEG PAIN RATED "8". CALL LIGHT WITHIN REACH.
--- NOTE | 2020-06-23 05:24 | NUR ---
RESTED QUIETLY. PAIN CONTROLLED WITH SCHEDULED TYLENOL. HOURLY ROUNDING IN PROGRESS.
[2020-06-23 08:00] VITALS: BP 162/68
--- NOTE | 2020-06-23 17:02 | NUR ---
ASSUMMED CARE OF PT AT 0730, PT ALERT AND ORIENTED, SLOW TO RESPOND AT TIMES, PT TRANSFERS WITH ASSIST OF 1, GB WALKER, AMB TO BATHROOM TO VOID, TAKING FOOD AND FLUIDS WELL, DRESSING TO LEFT HIP INTACT, TESSIO IN RIGHT CHEST, PT TO BE NPO AFTER MIDNIGHT FOR POSSIBLE EVALUATION OF TESSIO IN IR, DRESSING TO OPEN AREA ON SACRUM CHANGED X1, PHOTO TAKEN, WD CONSULT PLACED, PT REPOSTIONED EVERY 2 HOURS, MEDICATED FOR PAIN PER ORDER, PARTICIPATED IN ALL THERAPIES, HOURLY ROUNDING COMPLETED, ASSESSMENT COMPLETE, WILL CONTINUE TO MONITOR.
[2020-06-23 20:16] VITALS: BP 125/73
--- NOTE | 2020-06-23 20:50 | NUR ---
RESTING QUIETLY IN BED AND WATCHING TV. STATES LEFT LEG PAIN AT A "7". PAIN MEDICATION GIVEN. IN GOOD SPIRITS. SMILING. DECLINED OFFER OF A SNACK. CALL LIGHT WITHIN REACH.
--- NOTE | 2020-06-24 05:35 | NUR ---
NO FURTHER COMPLAINT OF PAIN. RESTED SOUNDLY. TURNS SELF IN BED. MEPILEX ON BUTTOCK DRY/INTACT. NPO IN CASE IR WORKS ON [employer]. HOURLY ROUNDING IN PROGRESS.
[2020-06-24 05:47] LABS: HEMATOCRIT 25.3 % (37.0-47.0); HEMOGLOBIN 8.2 gm/dL (12.0-15.0); MCH 29.3 pg (26.0-34.0); MCHC 32.5 g/dL (28.0-37.0); MPV 7.7 fl. (7.2-11.1); RBC 2.81 mil/uL (4.20-5.00); RDW-CV 14.9 % (10.5-14.5); WBC 6.7 thou/uL (4.0-11.0)
[2020-06-24 06:02] LABS: CALCIUM 7.5 mg/dL (8.5-10.1); CREATININE 4.2 mg/dL (0.6-1.3); MAGNESIUM 2.1 mg/dL (1.8-2.4); POTASSIUM 4.4 mmol/L (3.5-5.1)
[2020-06-24 08:00] VITALS: BP 158/82
--- NOTE | 2020-06-24 09:30 | NUR ---
WOUND NURSE: PATIENT SEEN TO ADDRESS A SKIN LESION ON THE SACRUM. HAD PREVIOUSLY PRESENTED WITH REDNESS, BUT NOT OPEN OR DRAINING. NOW MEASURES 2.0 X 1.7 X 0.1 CM, REDDISH PINK SHALLOW EROSION, SCANT SEROUS DRAINAGE. NO PERIWOUND REDNESS, WARMTH, OR INDURATION. PATIENT REPORTS STINGING SENSATION WHILE CARE PROVIDED. STATES SHE BELIEVES THE LESION OCCURRED FROM SLIDING IN THE BED AND NOT PRESSURE RELATED. PATIENT PRONED HERSELF IN THE BED, SO AGREE THIS IS NOT PRESSURE RELATED. PATIENT ENCOURAGED TO CONTINUE WITH OFFLOADING AND AVOIDING FRICTION TO THE AFFECTED AREA. PATIENT STATES SHE UNDERSTANDS.
--- NOTE | 2020-06-24 16:14 | NUR ---
ASSUMMED CARE OF PT AT 0730, PT ALERT AND ORIENTED, TRANSFERS WITH ASSIST OF 1, GB WALKER, AMB TO BATHROOM TO VOID, C/O PAIN IN LEFT HIP, MEDICATED PER ORDER, DRESSING INTACT TO LEFT HIP, WD NURSE ASSESSED SACRAL WOUND AND RE DRESSED, TO BE CHANGED TWICE A WEEK, TESSIO CATH CHANGED OUT IN IR, PT TOLERATED PROCEDURE, TAKING FOOD AND FLUIDS WELL, ECHO COMPLETED, PT REPOSITIONS SELF, LIKES LAYING ON STOMACH, PARTICIPATED IN ALL THERAPIES, HOURLY ROUNDING COMPLETED, ASSESSMENT COMPLETE WILL CONTINUE TO MONITOR.
--- NOTE | 2020-06-24 16:50 | 2DMMODE ---
[place] [address] 2 D/M-MODE ECHOCARDIOGRAM Name: MARYAN FERNANDO Room: [address] ADM IN [facility]#: [id number] Admission: 06/18/20 Attend Phys: Arben Downey MD Discharge: Date of : 72 Date of Service: 06/24/20 1650 Report #: [id number] THIS REPORT FOR: cc: FAM - No family physician/PCP FAM - No family physician/PCP De Iniguez MD [facility] ~ APPROVED REPORT Study performed: 06/24/2020 14:53:26 EXAM: Comprehensive 2D, Doppler, and color-flow Echocardiogram Patient Location: In-Patient Room #: 324 Status: routine BSA: 1.93 HR: 84 bpm BP: 125/73 mmHg Rhythm: NSR Other Information Study Quality: Excellent Indications Syncope 2D Dimensions IVSd: 13.77 (7-11mm) LVOT Diam: 21.18 (18-24mm) LVDd: 49.30 mm PWd: 12.07 (7-11mm) Ascending Ao: 30.79 (22-36mm) LVDs: 35.49 (25-40mm) Aortic Root: 30.90 mm Volumes Left Atrial Volume (Systole) LA ESV Index: 32.10 mL/m2 Aortic Valve AoV Peak Kirt.: 1.50 m/s AO Peak Gr.: 9.04 mmHg LVOT Max P.46 mmHg AO Mean Gr.: 5.99 mmHg LVOT Mean P.80 mmHg LVOT Max V: 1.27 m/s AO V2 VTI: 29.19 cm LVOT Mean V: 0.75 m/s PATRIC (VTI): 2.82 cm2 LVOT V1 VTI: 23.37 [place] [address] 2 D/M-MODE ECHOCARDIOGRAM Name: FLORES FERNANDORINA Room: [address] IN [facility].#: [id number] Admission: 06/18/20 Attend Phys: Arben Downey MD Discharge: Date of : 72 Date of Service: 06/24/20 1650 Report #: [id number] Mitral Valve E/A Ratio: 0.70 MV Decel. Time: 223.77 ms MV E Max Kirt.: 0.72 m/s MV PHT: 64.89 ms MVA (PHT): 3.39 cm2 TDI E/Lateral E': 9.00 E/Medial E': 12.00 Medial E' Kirt.: 0.06 m/s Lateral E' Kirt.: 0.08 m/s Pulmonary Valve PV Peak Kirt.: 0.98 m/s PV Peak Gr.: 3.87 mmHg Left Ventricle The left ventricle is normal size. There is normal LV segmental wall motion. Mild concentric left ventricular hypertrophy. Left ventricular systolic function is borderline. LVEF is 50-55%. Grade I - abnormal relaxation pattern. Right Ventricle The right ventricle is normal size. The right ventricular systolic function is normal. Atria Left atrium is mildly dilated. The right atrium size is normal. Aortic Valve The aortic valve is normal in structure. No aortic regurgitation is present. There is no aortic valvular stenosis. Mitral Valve The mitral valve is normal in structure. There is mild mitral valve regurgitation noted. No evidence of mitral valve stenosis. Tricuspid Valve The tricuspid valve is normal in structure. Trace tricuspid regurgitation. Unable to assess PA pressure. Pulmonic Valve The pulmonary valve is normal in structure. Trace pulmonic regurgitation. [place] [address] 2 D/M-MODE ECHOCARDIOGRAM Name: MARYAN FERNANDO Room: [address] IN [facility]#: [id number] Admission: 06/18/20 Attend Phys: Arben Downey MD Discharge: Date of : 72 Date of Service: 06/24/20 1650 Report #: [id number] The aortic root is normal in size. IVC is normal in size and collapses >50% with inspiration. Pericardium There is no pericardial effusion. <Conclusion> Mild concentric left ventricular hypertrophy. LVEF is 50-55%. There is mild mitral valve regurgitation noted. Left atrium is mildly dilated. <ELECTRONICALLY SIGNED> By: De Iniguez MD, FACC 06/24/201649 49 49 De Iniguez MD, FACC /INF
[2020-06-24 19:00] VITALS: BP 121/74
--- NOTE | 2020-06-24 20:50 | NUR ---
AWAKENED FOR REASSESSMENT AND MEDICATION PASS. PATIENT DIAPHORETIC. ACCUCHECK 74. PROVIDED APPLE JUICE PER PATIENT'S CHOICE AND PEANUT BUTTER AND CRACKERS. STATES LEFT LEG PAIN AT A "7". PAIN MEDICATION GIVEN. CALL LIGHT WITHIN REACH.
[2020-06-25 02:06] LABS: GLYCOHEMOGLOBIN (HGB A1C) 6.6 % (4.8-5.6)
--- NOTE | 2020-06-25 05:02 | NUR ---
RESTED QUIETLY MOST OF THE NIGHT. DID YELL OUT AT ONE POINT. PATIENT STATES WAS HAVING A BAD DREAM. OXY IR GIVEN AT 0439 FOR COMPLAINT OF LEFT LEG PAIN RATED "8". HOURLY ROUNDING IN PROGRESS.
[2020-06-25 08:00] VITALS: BP 159/82
--- NOTE | 2020-06-25 10:49 | NUR ---
PATIENT'S BLOOD GLUCOSE THIS MORNING WAS 476. RECHECKED ON OTHER HAND AND BLOOD GLUCOSE WAS 468. DR. MARRERO PAGED AND 12 UNIT OF INSULIN GIVEN, PER SEP. PATIENT'S BLOOD GLUCOSE NOW 300, AFTER INSULIN ADMINITRATION.
--- NOTE | 2020-06-25 13:45 | NUR ---
PER DR. MARRERO, DO NOT HOLD LANTUS AT BED TIME/NIGHT TIME. IF LANTUS IS HELD, THE TRUCK GREASER DOCTOR MUST BE CALLED WITH AN EXPLAINATION TO WHY.
--- NOTE | 2020-06-25 15:57 | NUR ---
CM SPOKE TO THE PT TO DISCUSS ANY QUESTIONS OR CONCERNS THAT SHE MAY HAVE FOR TOMORROWS TEAM CONFRENCE MEETING. PT HAS NO QUESTIONS OR CONCERNS AT THIS TIME. CM TO F/U WITH PT AFTER TOMORROWS MEETING.
--- NOTE | 2020-06-25 17:21 | NUR ---
ASSUMED CARE OF PATIENT AT 0730. ALERT AND ORIENTED X 4. VITAL SIGNS STABLE ON ROOM AIR. PAIN BEING MANAGED WITH PO MEDICATION. DENIES NAUSEA AT THIS TIME. TOLERATED MORNING THERAPIES. DIALYSIS THIS AFTERNOON AND 1.5 LITERS REMOVED. DRESSING TO COCCYX CLEAN/DRY/INTACT. FALL PRECAUTIONS IN PLACE AND BED ALARM ON. HOURLY ROUNDS MAINTAINED THROUGHOUT THE SHIFT. CALL LIGHT WITHIN REACH. NURSING WILL CONTINUE TO MONITOR.
[2020-06-25 19:00] VITALS: BP 174/92
[2020-06-26 05:43] LABS: HEMATOCRIT 28.1 % (37.0-47.0); HEMOGLOBIN 9.3 gm/dL (12.0-15.0); MCHC 33.2 g/dL (28.0-37.0); MCV 90.2 fL (80.0-100.0); MPV 7.6 fl. (7.2-11.1); RBC 3.11 mil/uL (4.20-5.00); RDW-CV 15.3 % (10.5-14.5)
[2020-06-26 05:51] LABS: CALCIUM 7.7 mg/dL (8.5-10.1)
[2020-06-26 08:00] VITALS: BP 159/93
--- NOTE | 2020-06-26 08:02 | NUR ---
[facility] ALERT AND ORIENTED. PLEASANT. BUT QUITE TEARFUL AT TIMES. SAYS THAT SHE "HATES HER LIFE". ASKED PT IF WANTS TO HURT HERSELF. PT DENIED WANTING TO HURT HERSELF. MIN ASSIST WITH GAIT BELT AND WALKER. HAD STOOL ACCIDENT X 1. PAIN MEDS GIVEN NEEDED. AT 0400, PT FOUND WITH MODERATE AMOUNT OF BLOOD TO RIGHT CHEST TESSIO. CATHETER STILL SUTURED INTACT. DRSG CHANGED. NO FURTEHR ACTIVE BLEEDING. NOTIFIED DR WADE. HEPARIN D/C'D. BLOOD GLUCOSE 50 THIS AM. RECHECK FINGERSTICK WAS 38. JUICES GIVEN. RECHECK WAS 67. MORE JUICE GIVEN. PT DENIED ANY SYMPTOMS. WILL CONTINUE TO MONITOR.
--- NOTE | 2020-06-26 17:24 | NUR ---
TEAM CONFRENCE MEETING HELD TODAY. CM AND PHYSICIAN SPOKE TO PT TO INFORM OF MEETING AND PLAN TO RE-TEAM PT AND HAVE THE PT REMAIN ON THE UNIT FOR ANOTHER WEEK. PT IN AGREEMENT WITH PLAN. CM CONTACTED PT'S MOTHER TO INFORM OF MEETING AND TO CONFIRM CM ASSESSMENT INFO. PT'S MOTHER INFORMS THAT SHE IS HOME WITH THE PT 15/02 AND ABLE TO TRANSPORTATION TO DIALYSIS IF NEEDED AT D/C. PT'S MOTHER INFORMS THAT THE PT DID NOT HAVE A WALKER PRIOR TO ADMIT. PT HAD OCCATIONALLY USED HER MOTHERS WALKER FOR MOBILITY. PT'S MOTHER ALSO INFORMS THAT SHE IS UNABLE TO DO A LOT OF HEAVY LIFTING FOR THE PT IF SHE WERE TO NEED THAT AT D/C. CM WILL REMAIN AVAILABLE TO ASSIST AND FOLLOW NEEDED.
--- NOTE | 2020-06-26 18:34 | NUR ---
ALERT AND ORIENTED X4. UP WITH 1 ASSIST, GAIT BELT AND WALKER. WEIGHTBEARING TOLERATED TO LEFT LOWER LEG. DRESSING DRY AND INTACT OVER LEFT HIP INCISION. USES PO PAIN MEDICATION TO HELP WITH PAIN. TALKED WITH DR ABOUT VASCULAR DR [facility] NO LONGER COMING TO [facility]. WILL PROBABLY HAVE SHUNT PLACED OUTPATIENT. DIALYSIS NURSE ASKED TO CHECKED TESSIO CATHETER AND FELT EVERYTHING LOOKED OK. NO MORE BLEEDING NOTED AROUND TESSIO. DRESSING INTACT OVER COCCYX AREA. USES CALL LIGHT FOR ASSIST. FALL PRECAUTIONS IN PLACE. BED ALARM AND CHAIR ALARM USED.
[2020-06-26 19:30] VITALS: BP 169/89
[2020-06-26 22:07] LABS: HEPATITIS B SURFACE AG Negative (Negative)
--- NOTE | 2020-06-27 06:14 | NUR ---
ASSUMED CARES AT 1920. ALERT AND ORIENTED. IN BETTER MOOD AND NOT TEARFUL. CAN EASILY GET EMOTIONAL. PAIN MEDS GIVEN NEEDED FOR LEFT HIP PAIN. RIGHT CHEST TESSIO IN PLACE WITHOUT ANY BLEEDING NOTED. MIN ASSIST WITH GAIT BELT AND WALKER. UP TO BR. PT REFUSED TO EAT SNACK AT BEDTIME DESPITE EDUCATION. SLEPT MOST OF THE NIGHT. CALL LIGHT IN REACH AND BED ALARM ON.
[2020-06-27 07:30] VITALS: BP 118/80
--- NOTE | 2020-06-27 18:13 | NUR ---
ASSESSMENT COMPLETED DOCUMENTED THIS MORNING. PATIENT UP AND TOLERATING THERAPY. PAIN IS WELL MANAGED WITH CURRENT PAIN MEDICATION REGIMEN. SUHAIL REMOVED, STERI STRIPS APPLIED, AND COVERED WITH BORDERED GAUZE DRESSING. INCISION IS C/D/I WITH NO S/S OF INFECTION. LEFT FEMUR XRAY OBTAINED TODAY DUE TO C/O PAIN IN LEFT HIP/BUTTOCK/KNEE. RESULTS REC'D AND CHANGES NOTED. THIS NURSE CALLED AND LM WITH [facility] (DR. ELLIS [phone]) AT 5517 TO REPORT RESULTS, NO RETURN CALL REC'D. PATIENT IN DIALYSIS THIS AFTERNOON.
[2020-06-27 19:30] VITALS: BP 146/100
--- NOTE | 2020-06-27 19:35 | NUR ---
RETURNED FROM DIALYSIS AT ABOUT 1920. STATES FEELING NAUSEOUS BUT WILL TRY TO EAT SUPPER. FLEXERIL AND OXY IR GIVEN PER REQUEST FOR COMPLAINT OF LEFT LEG AND LEFT KNEE AND LOW BACK PAIN RATED "8". CALL LIGHT WITHIN REACH.
--- NOTE | 2020-06-28 06:04 | NUR ---
RESTED QUIETLY. NO FURTHER COMPLAINT OF PAIN. HOURLY ROUNDING IN PROGRESS.
[2020-06-28 08:30] VITALS: BP 171/102
--- NOTE | 2020-06-28 11:44 | NUR ---
0730 CALLED AND LM WITH ERIBERTO @ ANSWERING SERVICE FOR DR. GRECO'S OFFICE TO PLEASE HAVE DR. CALL R/T XRAY THAT WAS PERFORMED YESTERDAY. NO RETURN CALL. 1015 SP0KE WITH MARIYA AT DR. GRECO'S OFFICE TO PLEASE HAVE DR/RESIDENT CALL R/T FEMUR XRAY RESULTS YESTERDAY. 1030 DR[address] JAY LR CALLED BACK AND STATED HE WAS REVIEWING XRAY AT THE TIME WE WERE SPEAKING AND STATED THE XRAY TAKEN YESTERDAY WAS FROM A DIFFERENT POINT OF VIEW THAN THE PREVIOUS XRAY ON 06/13/20. WAS MUCH CLEARER AND DEFINED, ALL HARDWARE WAS STILL INTACT AND INPLACE AND PATIENT WAS FINE TO CONTINUE WITH THERAPIES ORDERED. INFORMED DR. SHIELDS AND THERAPIES.
--- NOTE | 2020-06-28 16:27 | NUR ---
ASSESSMENT COMPLETED DOCUMENTED THIS MORNING. UP AND PARTICIPATING WITH THERAPY. BP 171/102, YOU CALL MD TO DR. MARRERO AND NEW ORDERS FOR LOSARTAN 25MG PO QD STARTED. OXY AND XANAX GIVEN X1 THROUGHOUT THE SHIFT AND HAS BEEN PAIN FREE.
[2020-06-28 20:00] VITALS: BP 164/102
--- NOTE | 2020-06-29 00:55 | NUR ---
ASSUMED CARE AT 1930. PATIENT RESTING IN BED. TAKES PILLS WHOLE ALL AT ONE TIME WITH WATER. DRESSING C/D/I. MOVES ABOUT IN BED WITHOUT DIFF. TESSIO CATH DRESSING C/D/I. REFUSED HS SNACK. INSULIN GIVEN PER ORDER. MEDICATED FOR PAIN AT HS. HOURLY ROUNDS CONTINUE. BED ALARM ON. CALL LITE IN REACH.
[2020-06-29 05:33] LABS: ABSOLUTE BASOPHILS 0.1 thou/uL (0.0-0.2); ABSOLUTE EOSINOPHILS 0.3 thou/uL (0.0-0.7); ABSOLUTE LYMPHOCYTES 1.6 thou/uL (0.8-5.3); ABSOLUTE MONOCYTES 0.4 thou/uL (0.0-1.2); ABSOLUTE NEUTROPHILS 5.3 thou/uL (1.6-8.1); EOSINOPHILS 3.7 %; HEMATOCRIT 28.2 % (37.0-47.0); HEMOGLOBIN 9.3 gm/dL (12.0-15.0); LYMPHOCYTES 20.8 %; MCH 29.8 pg (26.0-34.0); MCHC 32.8 g/dL (28.0-37.0); MCV 90.9 fL (80.0-100.0); MPV 7.4 fl. (7.2-11.1); NUCLEATED RBCS 0 /100WBC; PLATELET COUNT* 475 thou/uL (150-400); POLYS 69.5 %; RDW-CV 15.7 % (10.5-14.5); WBC 7.6 thou/uL (4.0-11.0)
--- NOTE | 2020-06-29 05:37 | NUR ---
SLEPT MUCH OF THE NIGHT UNTIL AWAKENED FOR LABS. IT WAS THEN DISCOVERED THAT THE PATIENT'S TESSIO CATH DRESSING WAS LEAKING A LITTLE BLOOD. BLOOD TRAPPED UNDER DRESSING AROUND ANCHORING SUTURES. SMALL AMOUNT OF BLOOD LEAKING TOWARD EDGE OF DRESSING. 4X4S PLACED AROUND THE TESSIO TUBINGS AND ANCHORED TO THE PATIENT'S SKIN IN SUCH A WAY THAT THE NEW DRESSING IS ON TOP OF THE TRANSPARENT DRESSING AND REMOVAL OR CHANGE OF THE DRESSING WILL NOT INTERFERE WITH THE STERILE OPSITE DRESSING THAT DIALYSIS APPLIED. WILL CONTINUE TO MONITOR THIS. PATIENT WONDERS IF SHE SCRATCHED AT IT DURING THE NIGHT IN HER SLEEP. NO C/O PAIN. HOURLY ROUNDS CONTINUE. BED ALARM ON. CALL LITE IN REACH.
[2020-06-29 05:56] LABS: CALCIUM 7.7 mg/dL (8.5-10.1); CREATININE 3.7 mg/dL (0.6-1.3)
[2020-06-29 06:38] LABS: % SATURATION 28 % (20-39); IRON 41 ug/dL (50-175)
--- NOTE | 2020-06-29 07:30 | NUR ---
DR. CLARKE ROUNDED, INFORMED OF BLEEDING AROUND TESSIO SITE. NO NEW ORDERS, STATES THAT THIS IS COMMON FOR NEW CATHS.
[2020-06-29 08:00] VITALS: BP 154/88
[2020-06-29 19:51] VITALS: BP 145/83
--- NOTE | 2020-06-29 23:28 | NUR ---
ASSUMED CARE AT 1930. PATIENT RESTING IN BED. TAKES PILLS WHOLE ALL AT ONE TIME WITH WATER. UP WITH GAIT BELT, WALKER, VOIDS PER TOILET AND DOES ALL CARES PER SELF. DSSG TO RT TESSIO WAS REINFORCED BY DIALYSIS, NOW DRY/INTACT. DRESSING TO LT HIP C/D/I. DSSG TO SACRUM D/I. MOVES SELF IN BED EASILY. REFUSED COLACE. REFUSED HS SNACK DESPITE EDUCATION. CALL LITE IN REACH. BED ALARM ON. HOURLY ROUNDS CONTINUE.
--- NOTE | 2020-06-30 05:56 | NUR ---
SLEPT MUCH OF THE NIGHT. NO C/O PAIN. TURNS SELF. CALL LITE IN REACH. BED ALARM ON. HOURLY ROUNDS CONTINUE.
[2020-06-30 06:48] VITALS: BP 159/98
[2020-06-30 07:30] VITALS: BP 147/91
--- NOTE | 2020-06-30 18:18 | NUR ---
PT A&Ox4. VITALS STABLE. EATING WELL. WALKS WITH STB ASSIST USING GAITBELT AND WALKER. ACCU CHECK. UP TO CHAIR FOR MEALS. DRESSING C/D/I. FALL PRECAUTIONS IN PLACE. CALL LIGHT WITHIN REACH WILL CONTINUE TO MONITOR.
[2020-06-30 20:00] VITALS: BP 114/81
--- NOTE | 2020-06-30 21:33 | NUR ---
PATIENT REFUSED HS SNACK. STATES SHE WAS NOT HUNGRY. SHE ALSO STATES THAT SHE DOES NOT TAKE SLIDING SCALE INSULIN AT HS AT HOME, SHE TAKES IT ONLY WITH MEALS. LAST NIGHT SHE ALSO REFUSED HS SNACK AND HER BLOOD SUGAR THIS AM WAS 49. SHE REFUSED HER HS SLIDING SCALE DOSE THIS EVENING, BUT TOOK HER LANTUS WHICH AT THAT TIME (2112) WAS ORDERED [address] WERNER NOTIFIED OF PATIENT REFUSAL OF HS SLIDING SCALE, PER HOME ROUTINE, AND REFUSAL OF HS SNACK, AND THIS MORNING'S BLOOD SUGAR PER YOUCALLMFabien. DR. WERNER CHANGED THE LANTUS TO 6 UNITS AND CHANGED THE SLIDING SCALE AT 2129. SEE MAR.
--- NOTE | 2020-06-30 23:25 | NUR ---
ASSUMED CARE AT 1930. PATIENT RESTING IN BED. TURNS SELF. TESSIO CATH INTACT, DRESSING INTACT. NO NEW BLEEDING NOTED. TAKES PILLS WHOLE WITH WATER ALL AT ONE TIME. SEE PREVIOUS NOTE REGARDING HS BLOOD SUGAR/SLIDING SCALE. MEDICATED FOR PAIN AT HS. DSSGS TO LT HIP AND SACRUM C/D/I. HOURLY ROUNDS CONTINUE. BED ALARM ON. CALL LITE IN REACH.
--- NOTE | 2020-07-01 05:39 | NUR ---
SLEPT MOST OF THE NIGHT. TURNS SELF. INCONTINENT OF A SMALL AMOUNT OF URINE, CLOTHING CHANGED. SHE DID SKIN CARE AND DOFFED CLOTHES. MEDICATED FOR PAIN. UP WITH GAIT BELT, WALKER, SBA. HOURLY ROUNDS CONTINUE. DSSGS TO HIP AND SACRUM C/D/I. BED ALARM ON. CALL LITE IN REACH. HOURLY ROUNDS CONTINUE.
[2020-07-01 07:45] VITALS: BP 144/104
[2020-07-01 10:01] VITALS: BP 97/47
[2020-07-01 12:30] VITALS: BP 173/100
[2020-07-01 13:00] VITALS: BP 162/100
--- NOTE | 2020-07-01 15:41 | NUR ---
PATIENT LEFT AT APROXIMATELY 1130 FOR TESSIO CATHETER EXCHANGE IN IR AND RETURNED AT APROXIMATELY 1220. B/P WAS ELEVATED WHILE IN IR. 1230 B/P 173/100 AND PULSE 88. PAGEFabien AND NOTIFIED OF ELEVATED B/P. NEW ORDER NOTED. TESSIO DRESSING DRY AND INTACT. 1300 B/P 162/100 AND PULSE 80. C/O SOME CONTINUED RIGHT SHOULDER PAIN AND PO PAIN MEDICATION GIVEN. PATIENT TEARFUL ABOUT SITUATION. MEDICATION GIVEN AND PATIENT RESTING QUIETLY/SLEEPING AT THIS TIME.
--- NOTE | 2020-07-01 15:48 | NUR ---
PATIENT ALERT AND ORIENTED X4. UP WITH 1 ASSIST, GAIT BELT AND WALKER. GIVEN PO PAIN MEDICATION FOR RIGHT SHOULDER PAIN. PATIENT TEARFUL TODAY ABOUT SITUATION AND MEDICATION GIVEN AND PATIENT RESTING QUIETLY NOW. DR NOTIFIED OF ELEVATED B/P WHILE IN IR AND WHEN RETURNING TO ROOM. NEW ORDER NOTED. DRESSING DRY AND INTACT OVER LEFT HIP INCISION. USES CALL LIGHT FOR ASSIST. FALL PRECAUTIONS IN PLACE. BED ALARM AND CHAIR ALARM USED. TESSIO CATHETER EXCHANGED TODAY IN IR.
[2020-07-01 20:20] VITALS: BP 134/87
--- NOTE | 2020-07-01 20:45 | NUR ---
PAIN MEDICATION GIVEN FOR COMPLAINT OF RIGHT SHOULDER PAIN. EARLIER AMBULATED TO THE BATHROOM WITH STAND BY GAITBELT WALKER AND HAD A SMALL BM. CALL LIGHT WITHIN REACH. DECLINED OFFER OF A SNACK.
[2020-07-02 04:15] LABS: HEMOGLOBIN 8.8 gm/dL (12.0-15.0); MCH 30.1 pg (26.0-34.0); MCHC 32.5 g/dL (28.0-37.0); MCV 92.6 fL (80.0-100.0); MPV 7.4 fl. (7.2-11.1); RBC 2.92 mil/uL (4.20-5.00); RDW-CV 16.9 % (10.5-14.5)
[2020-07-02 04:34] LABS: ALBUMIN 1.7 g/dL (3.4-5.0); CALCIUM 7.3 mg/dL (8.5-10.1); CREATININE 4.4 mg/dL (0.6-1.3); MAGNESIUM 1.6 mg/dL (1.8-2.4); POTASSIUM 4.7 mmol/L (3.5-5.1); TOTAL BILIRUBIN 0.2 mg/dL (<0.1-1.0); TOTAL PROTEIN 4.9 g/dL (6.4-8.2)
--- NOTE | 2020-07-02 05:02 | NUR ---
RESTED QUIETLY. TURNS SELF IN BED. NO FURTHER COMPLAINT OF PAIN. HOURLY ROUNDING IN PROGRESS.
[2020-07-02 07:45] VITALS: BP 146/93
[2020-07-02 08:11] VITALS: BP 146/93
[2020-07-02 12:10] LABS: PHOSPHORUS* 4.6 mg/dL (2.5-4.9)
--- NOTE | 2020-07-02 15:36 | NUR ---
WOUND NURSE: PATIENT SEEN TO ADDRESS SACRAL LESION WHICH IS NOW CLOSED WITH INTACT PINK TISSUE, BUT WITH MACULOPAPULAR RASH. SUSPEC THERE MAY BE A FUNGAL COMPONENT TO THIS. PROVIDED WITH PHYTOPLEX AF MOISTURE BARRIER CREAM TO BE APPLIED Q SHIFT. THIS WAS DISCUSSED WITH NURSE CARING FOR PATIENT. DRESSING TO AFFECTED AREA DISCONTINUED.
--- NOTE | 2020-07-02 16:47 | NUR ---
CM SPOKE TO PT AND HER MOTHER TO DISCUSS ANY QUESTIONS OR CONCERNS THAT THEY MAY HAVE FOR TOMORROWS TEAM CONFRENCE MEETING. NEITHER HAD ANY QUESTIONS OR CONCERNS. PT WILL NEED A WALKER AT D/C. CM SPOKE TO MEDICAID TO INFORM OF NEED AND FAXED REQUESTED INFO. CM WILL NEED DME ORDER FOR WALKER PRIOR TO D/C TO OBTAIN WALKER FOR PATIENT. CM WILL REMAIN AVAILABLE TO ASSIST AND FOLLOW NEEDED.
--- NOTE | 2020-07-02 16:56 | NUR ---
ALERT AND ORIENTED X4. UP WITH 1 ASSIST, GAIT BELT AND WALKER. PO PAIN MEDICATION GIVEN TO HELP WITH LEFT HIP, BACK AND RIGHT SHOULDER PAIN. GEL APPLIED TO RIGHT SHOULDER AND PATIENT STATED IT WAS HELPFUL. TESSIO CATHETER DRESSING SATURATED THIS AM. IR NOTIFIED AND INSTRUCTIONS GIVEN TO CHANGE DRESSING AND THEN LET THEN KNOW IF BLEEDING CONTINUES AT TESSIO SITE. DRESSING CHANGED WITHOUT DIFFICULTY. SWELLING AND PINK AREA NOTED ABOVE TESSIO DRESSING. IR NOTIFIED AND MEDICAL DR NOTIFIED. ANTIBIODIC STARTED ORDERED BY IR . MEDICAL DR ORDERED ULTASOUND OF NECK. REPORT CALLED TO DR AND CT ORDERED. CT TO BE DONE ON 07/03 DUE TO DIALYSIS. WOUND ON BUTTOCK HEALED. NEW ORDER NOTED FOR SLIGHT RASH ON BUTTOCK. PATIENT USES CALL LIGHT FOR ASSIST. FALL PRECAUTIONS IN PLACE BED ALARM AND CHAIR ALARM USED.
[2020-07-02 20:00] VITALS: BP 134/86
[2020-07-02 23:07] LABS: IgA 182 mg/dL (87-352); IgG 721 mg/dL (586-1602); IgM 92 mg/dL (26-217)
--- NOTE | 2020-07-03 04:08 | NUR ---
ASSUMED PT CARE AT 1930. PT ALERT AND ORIENTED X4, POLITE AND COOPERATIVE WITH CARES. PT UP TO BATHROOM WITH ASSIST OF ONE, GAIT BELT AND WALKER. VOIDED IN HAT, SPECIMEN TO LAB. STOOL X1. GEL TO RIGHT SHOULDER WITH EVENING MEDS. TAKES MEDS WHOLE WITH WATER ALL AT ONCE. TESSIO CATH TO RIGHT UPPER CHEST, DRESSING C/D/I. PT NPO AFTER BREAKFAST, CAT SCAN TO BE DONE TODAY BETWEEN 1400 AND 1600 DUE TO TIMING RELATED TO DIALYSIS ON WEDNESDAY/THURSDAYS. DECLINED OFFER OF SNACK AT HS. PRN PAIN AND ANXIETY MEDICATIONS AT HS. PT SLEPT MOST OF THE NIGHT. CALL LIGHT IN REACH, BED ALARM ON FOR SAFETY. HOURLY ROUNDING IN PROGRESS, WILL CONTINUE TO MONITOR.
[2020-07-03 04:47] LABS: HEMATOCRIT 25.9 % (37.0-47.0); HEMOGLOBIN 8.5 gm/dL (12.0-15.0); MCH 30.2 pg (26.0-34.0); MCHC 32.8 g/dL (28.0-37.0); MCV 92.3 fL (80.0-100.0); MPV 7.4 fl. (7.2-11.1); RBC 2.81 mil/uL (4.20-5.00); RDW-CV 17.2 % (10.5-14.5); WBC 6.5 thou/uL (4.0-11.0)
[2020-07-03 05:33] LABS: ALBUMIN 1.7 g/dL (3.4-5.0); CALCIUM 7.1 mg/dL (8.5-10.1); PHOSPHORUS* 3.2 mg/dL (2.5-4.9); POTASSIUM 4.2 mmol/L (3.5-5.1)
[2020-07-03 05:35] LABS: CREATININE 2.9 mg/dL (0.6-1.3)
[2020-07-03 05:45] LABS: CALCIUM 7.1 mg/dL (8.5-10.1); CREATININE 2.9 mg/dL (0.6-1.3); POTASSIUM 4.2 mmol/L (3.5-5.1)
[2020-07-03 08:30] VITALS: BP 159/99
[2020-07-03 17:03] VITALS: BP 159/99
[2020-07-03] MEDS ORDERED: KEFLEX250 M1 PO (17:15)
[2020-07-03 18:18] VITALS: BP 159/99
--- NOTE | 2020-07-03 18:30 | NUR ---
CT W AND W/O CONTRAST OF ABD AND PELVIS OBTAINED AT 1450 TODAY. UNREMARKABLE FOR ANY OBSTRUCTIONS OR MASSES. [address] QUINONES AND REQUESTED ORDER OKAY FOR PATIENT TO DC HOME, AND IS MEDICALLY STABLE. STATED OKAY AND WAS OKAY FOR NURSING TO RECONCILE MEDS AND CALL IN PRESCRIPTIONS NEEDED TO PATIENT'S PHARMACY. CALLED DR. SHIELDS AFTER SPEAKING WITH DR. QUINONES AND HE STATED OKAY FOR PATIENT TO GO HOME WELL. REQUESTED OKAY FROM IR AND ANY OUTPT NEEDS FROM THEM TO BE ADDRESSED WITH PATIENT. 1545 CALLED AND SPOKE WITH NATHEN IN INTERVENTION RADIOLOGY AND SHE STATED THAT IT WAS FINE FOR PATIENT TO GO HOME, SHE JUST NEEDED TO COMPLETE THE 7 DAYS OF ANTIBIIOTICS THAT WERE ORDERED BY DR. LAWRENCE. INSTRUCTED PATIENT ON MED AND CALLED IN MED TO HER PHARMACY. 1730 PATIENT DCD VIA W/C ACCOMPANIED BY NURSING STAFF TO FAMILY CAR WITH HER MOTHER FOR TRANSPORT. ALL PERSONAL BELONGINGS PACKED BY PATIENT, DC INSTRUCTIONS AND MEDICATIONS REVIEWED AND EDUCATION GIVEN WITH UNDERSTANDING VERBALIZED AND SIGNATURE OBTAINED.
== END 2020-07-03 17:30 | disposition home or self-care (01) | DRG 535 ==
LOC: M.REH 16:01
PROVIDERS: Family Medicine; Internal Medicine; Internal Medicine Nephrology; ADMIT Physical Medicine & Rehabilitation; ATTEND Physical Medicine & Rehabilitation
DX: S72.002A Fracture of unspecified part of neck of left femur, initial encounter for closed fracture (principal); N18.6 End stage renal disease; G93.41 Metabolic encephalopathy; E43 Unspecified severe protein-calorie malnutrition; D62 Acute posthemorrhagic anemia; I12.0 Hypertensive chronic kidney disease with stage 5 chronic kidney disease or end stage renal disease; N39.0 Urinary tract infection, site not specified; E87.3 Alkalosis; T82.49XA Other complication of vascular dialysis catheter, initial encounter; E11.22 Type 2 diabetes mellitus with diabetic chronic kidney disease; E11.649 Type 2 diabetes mellitus with hypoglycemia without coma; W18.39XA Other fall on same level, initial encounter; Y84.1 Kidney dialysis as the cause of abnormal reaction of the patient, or of later complication, without mention of misadventure at the time of the procedure; G89.29 Other chronic pain; E66.9 Obesity, unspecified; E03.9 Hypothyroidism, unspecified; F17.210 Nicotine dependence, cigarettes, uncomplicated; K59.00 Constipation, unspecified; D63.1 Anemia in chronic kidney disease; Y93.89 Activity, other specified; Y92.89 Other specified places as the place of occurrence of the external cause; Y99.8 Other external cause status; Z99.2 Dependence on renal dialysis; Z79.4 Long term (current) use of insulin; Z85.41 Personal history of malignant neoplasm of cervix uteri; Z90.49 Acquired absence of other specified parts of digestive tract; Z68.33 Body mass index [BMI] 33.0-33.9, adult; Z68.31 Body mass index [BMI] 31.0-31.9, adult

== ENCOUNTER 2020-11-09 12:06 | Inpatient (IN) | payer MEDICAID ==
[~2020-11-09] VITALS: Ht 177.8 cm; Wt 44.1 kg
--- NOTE | ~2020-11-09 | EKG ---
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
[~2020-11-09 12:06] MED LIST changes: +KEFLEX250 M1 PO
[2020-11-09 12:09] VITALS: BP 193/130
[2020-11-09 12:31] LABS: ABSOLUTE EOSINOPHILS 0.1 thou/uL (0.0-0.7); ABSOLUTE LYMPHOCYTES 0.9 thou/uL (0.8-5.3); ABSOLUTE MONOCYTES 0.3 thou/uL (0.0-1.2); ABSOLUTE NEUTROPHILS 5.6 thou/uL (1.6-8.1); BASOPHILS 0.2 %; EOSINOPHILS 1.4 %; HEMATOCRIT 36.2 % (37.0-47.0); HEMOGLOBIN 11.7 gm/dL (12.0-15.0); LYMPHOCYTES 13.4 %; MCH 30.9 pg (26.0-34.0); MCHC 32.3 g/dL (28.0-37.0); MCV 95.4 fL (80.0-100.0); MONOCYTES 3.8 %; MPV 9.5 fl. (7.2-11.1); NUCLEATED RBCS 0 /100WBC; PLATELET COUNT* 155 thou/uL (150-400); POLYS 81.2 %; RDW-CV 14.7 % (10.5-14.5); WBC 6.9 thou/uL (4.0-11.0)
[2020-11-09 12:40] LABS: CALCIUM 8.4 mg/dL (8.5-10.1); CREATININE 3.7 mg/dL (0.6-1.3); POTASSIUM 3.8 mmol/L (3.5-5.1)
[2020-11-09 12:45] LABS: ALBUMIN 3.5 g/dL (3.4-5.0); TOTAL BILIRUBIN 0.3 mg/dL (<0.1-1.0); TOTAL PROTEIN 7.3 g/dL (6.4-8.2)
[2020-11-09] MEDS ORDERED: HUMALOG100 UNIT/1 SUBQ (14:34)
[2020-11-09 15:46] VITALS: BP 187/122
[2020-11-09 22:00] VITALS: BP 183/118
[2020-11-10] VITALS (7 sets, daily range): BP systolic 101–150; BP diastolic 60–90
[2020-11-10 04:16] LABS: HEMOGLOBIN 12.3 gm/dL (12.0-15.0); MCH 30.8 pg (26.0-34.0); MCHC 32.5 g/dL (28.0-37.0); MCV 94.6 fL (80.0-100.0); MPV 9.6 fl. (7.2-11.1); RBC 4.01 mil/uL (4.20-5.00); RDW-CV 14.9 % (10.5-14.5); WBC 8.2 thou/uL (4.0-11.0)
[2020-11-10 04:34] LABS: CALCIUM 9.6 mg/dL (8.5-10.1); CREATININE 4.3 mg/dL (0.6-1.3); POTASSIUM 3.5 mmol/L (3.5-5.1)
--- NOTE | 2020-11-10 12:23 | CON ---
[address] [address] CONSULTATION Name: MARYAN FERNANDO Room: [address] IN [facility].#: [id number] Admission: 11/09/20 Attend Phys: Fabien Moulton Discharge: Date of : 72 Report #: [id number] THIS REPORT FOR: cc: FAM - No family physician/PCP FAM - No family physician/PCP Angie Infante MD [facility] ~ CARDIOLOGY CONSULTATION HISTORY OF PRESENT ILLNESS: I was asked by Dr. Hinds to see this 50-year-old white female in cardiology consultation for evaluation and treatment of chest pain. This lady had the onset of chest pain yesterday and had pain for 15-16 hours before she finally came to the Emergency Room. She describes the pain as a substernal tightness. It did radiate to her back. There was no other radiation of the pain. It was an 8 on a scale of 10. It was associated with nausea, vomiting, diaphoresis and shortness of breath. She has never had this pain before. This lady has end-stage renal disease and is on dialysis. Additionally, she has essential hypertension, insulin-dependent diabetes mellitus and hypercholesterolemia. She also has hypothyroidism. She has a history of cervical cancer, hysterectomy and cystectomy. ALLERGIES: She has no known allergies. HOME MEDICATIONS: Include p.r.n. Tylenol, atorvastatin 20 mg daily, cyclobenzaprine 10 mg p.r.n., diclofenac topical q.12 hours, vitamin D 50,000 units weekly, famotidine 20 mg p.r.n., folic acid 1 mg daily, Lasix 80 mg b.i.d., Neurontin 300 mg b.i.d., Lantus insulin 10 units at bedtime, lispro insulin 5 units before meals, levothyroxine 25 mcg daily, lorazepam 0.5 mg p.r.n., mirtazapine 7.5 mg daily, Protonix 40 mg daily, Metamucil 1 ____ daily, sertraline 100 mg daily, sodium bicarbonate 650 mg as directed, and trazodone 150 mg at bedtime. SOCIAL HISTORY: She does not smoke, drink or use illegal drugs. FAMILY HISTORY: Unremarkable. REVIEW OF SYSTEMS: Unremarkable except as per the history of present illness and past medical history. PHYSICAL EXAMINATION: GENERAL: She presents as a well-developed, well-nourished white female, in no acute distress. VITAL SIGNS: Her pulse was 91 and regular, blood pressure 136/84, respirations 18 and regular, temperature 98.7. HEENT: Her head was atraumatic. Eyes are clear. NECK: Supple. There is no jugular venous distention [place] [address] CONSULTATION Name: MARYAN FERNANDO Room: [address] IN [facility]#: [id number] Admission: 11/09/20 Attend Phys: Fabien Moulton Discharge: Date of : 72 Report #: [id number] Thyroid is not enlarged. There is no adenopathy. SKIN: Warm and dry. Mucous membranes are moist. LUNGS: Clear to auscultation and percussion. HEART: Revealed normal first and second heart sounds. There is soft S4. There is no S3. There are no murmurs, rubs, thrills, heaves or gallops. PMI is nondisplaced. ABDOMEN: Soft, flat and nontender. No palpable masses, no organomegaly. EXTREMITIES: Reveal no cyanosis, clubbing or edema. NEUROLOGIC: The patient mentated normally, talked normally, moved all extremities normally. LABORATORY DATA: Her initial EKG showed normal sinus rhythm. There is left ventricular hypertrophy, nonspecific T-wave abnormalities in the lateral leads. There was some ST elevation, likely due to LVH in the V1 through V3. QT interval was slightly prolonged. Second EKG done this morning demonstrated normal sinus rhythm. There is left ventricular hypertrophy. There was again ST elevations, at this time principally in V1, but there were new T-wave inversions in V4, V5 and V6 as well as one in aVL. Initial troponins were negative x 2, but then 1 in the early this morning was elevated at 0.17. Her chest x-ray showed interstitial edema. IMPRESSION: 1. Chest pain that likely represents an acute coronary syndrome. 2. End-stage renal disease, on hemodialysis. 3. Essential hypertension. 4. Insulin-dependent diabetes mellitus. 5. Hypercholesterolemia. 6. Hypothyroidism. RECOMMENDATION: She should have cardiac catheterization and coronary angiography that will be done tomorrow. Thank you very much for asking me to see the patient, if there are any questions, please feel free to contact me. <ELECTRONICALLY SIGNED> By: Angie Infante MD, FACC 11/10/20 1223 1012 [id number]. Maxwell Infante MD, FACC /nt
--- NOTE | 2020-11-10 12:27 | EKG ---
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 : 1970 Requested By: Angel Arrieta Order Number: [id number] MD: Maxwell Infante Measurements Intervals [place] Rate: 89 P: 32 MT: 169 QRS: 1 QRSD: 94 T: 104 QT: 411 QTc: 501 Interpretive Statements Sinus rhythm Borderline low voltage, extremity leads Consider left ventricular hypertrophy Nonspecific T abnormalities, lateral leads Anterior ST elevation, probably due to LVH Prolonged QT interval Compared to ECG 06/18/2020 15:12:15 T-wave abnormality now present ST (T wave) deviation now present Prolonged QT interval now present Electronically Signed On 11-10-2020 12:27:36 CDT by Maxwell Infante [email or web address] <ELECTRONICALLY SIGNED> By: Angie Infante MD, [facility] 11/10/20 1227 11 11 Angie Infante MD, [facility] /EPI
[2020-11-10 12:31] LABS: APTT 26.1 Seconds (25.0-31.3); INR 1.1; PROTIME 11.4 Seconds (9.20-11.50)
[2020-11-11] VITALS (12 sets, daily range): BP systolic 111–148; BP diastolic 62–88
[2020-11-11 04:27] LABS: MCH 30.9 pg (26.0-34.0); MCHC 32.2 g/dL (28.0-37.0); MCV 95.8 fL (80.0-100.0); MPV 9.6 fl. (7.2-11.1); RBC 3.13 mil/uL (4.20-5.00); RDW-CV 15.1 % (10.5-14.5); WBC 5.5 thou/uL (4.0-11.0)
[2020-11-11 04:36] LABS: HEMOGLOBIN 9.7 gm/dL (12.0-15.0)
[2020-11-11 04:42] LABS: CALCIUM 7.9 mg/dL (8.5-10.1); CHOLESTEROL 124 mg/dL (<200); HDL CHOLESTEROL 66 mg/dL (>40); LDL CHOLESTEROL 37 mg/dL (<100); POTASSIUM 3.6 mmol/L (3.5-5.1); SERUM ASSESSMENT Clear; TC:HDL 1.9 Ratio (Not establshd); TRIGLYCERIDE 108 mg/dL (<150); VLDL 22 mg/dL (<40)
--- NOTE | 2020-11-11 14:42 | EKG ---
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1970 Requested By: Jt Hinds Order Number: [id number] Reading MD: Riley Cullen Measurements Intervals [place] Rate: 91 P: 45 AR: 148 QRS: 5 QRSD: 108 T: 137 QT: 383 QTc: 472 Interpretive Statements Sinus rhythm Probable LVH with secondary repol abnrm Anterior ST elevation, probably due to LVH Compared to ECG 11/09/2020 12:12:13 T-wave abnormality no longer present Prolonged QT interval no longer present ST (T wave) deviation still present with anterolateral ST-T abnormalities more prominent Electronically Signed On 11-11-2020 14:42:17 CDT by Riley Cullen [email or web address] <ELECTRONICALLY SIGNED> By: Riley Cullen MD, [facility] 11/11/20 1442 0557 0557 Riley Cullen MD, [facility] /EPI
--- NOTE | 2020-11-11 18:03 | CARD ---
[address] [address] CARDIAC CATH REPORT Name: MARYAN FERNANDO Room: [address] IN ..#: [id number] Admission: 11/09/20 Attend Phys: Fabien Moulton Discharge: Date of : 72 Report #: [id number] THIS REPORT FOR: cc: FAM - No family physician/PCP FAM - No family physician/PCP Riley Clulen MD [facility] ~ APPROVED REPORT Study performed: 11/11/2020 14:18:31 Patient Details Patient Status: In-Patient Room #: The patient is a 50 year-old female Event Personnel Riley Cullen Manager Salt, Sarah Valentino RN Speech Pathology Supervisor, Mikel Ayala FIRE PREVENTION FORESTER Monitor, Emely Oro RTR Scrub Procedures Performed Art Access - R femoral artery* Left Heart Cath w/or w/o Coronaries [id number] [facility] MARI Place w/wo Plasty Single LAD [id number] w/wo Plasty Addl BR DIAG 1 C9601 DESADDL Hemostasis w/ Angioseal Indication Non-STEMI , Chest pain Risk Factors Arterial Hypertension, Renal Failure, Diabetes Admission/Lab Medications/Medications given during procedure Angiomax and heparin boluses Procedure Narrative The patient was brought electively to the Cardiac Catheterization Laboratory and was prepped and draped in a sterile manner. The right femoral was infiltrated with 2% Lidocaine subcutaneous anesthesia. A Whitestone 6 FR sheath was inserted into the right femoral artery. Coronary angiography was performed using coronary diagnostic catheters. The right coronary system was accessed and visualized with a JR4 catheter. The left coronary system was accessed and visualized with a JL4 catheter. The left ventricle was accessed and visualized with a Pig Tail catheter. Left ventricular/Aortic Valve gradient assessed via catheter pullback. [place] [address] CARDIAC CATH REPORT Name: MAYRAN FERNANDO Room: [address] IN ..#: [id number] Admission: 11/09/20 Attend Phys: Fabien Moulton Discharge: Date of : 72 Report #: [id number] BREWER projection. Pre-demployment femoral angiogram was performed . Closure device was deployed with a Fr Angioseal STS 6Fr. The patient tolerated the procedure well and there were no complications associated with the procedure. Intraoperative Conscious Sedation Sedation start time: 1453 Case end Time: 1639 Fentanyl 75 mcg Versed 3 mg Fluoro Time: 41.6 minutes Dose: DAP 934737 cGycm2 4150 mGy Contrast Type and Amount: Visipaque 460 ml Diagnostic Cath Left Main 0% LAD 80% tubular mid vessel stenosis with 90% tubular first diagonal stenosis Circumflex 30% proximal Right Coronary Dominant vessel with 20% mid vessel narrowing Left Ventriculography The left ventricle is normal in size with Reduced contractility. The left ventricular ejection fraction is estimated to be 30-35%. Left ventricular wall motion abnormalities are present. There is no mitral insufficiency. There is moderate diffuse hypokinesis with more prominent anterior wall hypokinesis Hemodynamics The aortic pressure is 122/71 mmHg with a mean of 90 mmHg. The left ventricular pressure is 130/2 mmHg with a mean of mmHg. The left ventricular end diastolic pressure is 6 mmHg. There was no gradient across the aortic valve upon pullback. PCI Technique Lesion Anticoagulation was achieved with Angiomax. Patient was preloaded with Angiomax IV 10.5 ml. Percutaneous coronary intervention was performed on the first diagnonal branch segment. The lesion stenosis prior to intervention was 90% with RADHA 3 flow. A 6FR XB 3.5 100CM Guide Catheter was used to engage the left ostium. A IG: ProwaterFlex 180CM Interventional Guidewire was used to cross the lesion. BALLOON DILATION A Balloon catheter Euphora SC 2.25x12 was inserted and inflated up to 8.00atm for 14seconds. Additional Inflation: 14.00atm [place] 11[place]. [place] [address] CARDIAC CATH REPORT Name: MARYAN FERNANDO Room: [address] IN M.R.#: [id number] Admission: 11/09/20 Attend Phys: Fabien Moulton Discharge: Date of : 72 Report #: [id number] Trek 2.5x12 12 for 20 15 for 15 STENT DEPLOYMENT A bare metaldrug-eluting stent Maben RX Stent 2.5X12mm was inserted and inflated up to 14.00atm for 15seconds. Additional Inflation: 16atm for 16seconds. Additional Inflation: 17atm for 15seconds. POST STENT DEPLOYMENT BALLOON DILATION A Balloon catheter Trek RX 2.5 X 8 was inserted and inflated up to 15.00atm for 14seconds. Final angiography reveals 10 % stenosis with RADHA 3 flow. PCI Technique Lesion 2 Percutaneous Coronary Intervention was performed on the Mid left anterior descending artery segment. The lesion stenosis prior to intervention was 80% with RADHA 3 flow. Balloon Dilation A Balloon catheter Trek RX 2.5 X 8 was inserted and inflated up to 14.00atm for 14seconds. Stent Deployment A stent Iván RX Stent 2.5X34mm was inserted and inflated up to 12atm for 14seconds. Additional Inflation: 15atm for 14seconds. Post Stent Deployment Balloon Dilation A Balloon catheter NC Trek RX 3.25 X 12 was inserted and inflated up to 14.00atm for 15seconds. Additional Inflation: 15.00atm for 10seconds. Final angiography reveals 10 % stenosis with RADHA flow. Comments The LAD/diagonal bifurcation intervention was complex by virtue of the severity and complexity of bifurcation disease. This required complex wiring, and rewiring after stent deployment in the LAD with final dilatations in the diagonal and parent LAD vessel. Conclusion 1. Non-STEMI 2. Severe multivessel coronary artery disease characterized by the following: [address] [place] [address] CARDIAC CATH REPORT Name: MARYAN FERNANDO Room: [address] IN ..#: [id number] Admission: 11/09/20 Attend Phys: Fabien Moulton Discharge: Date of : 72 Report #: [id number] A 80% tubular mid LAD stenosis with 90% proximal prominent first diagonal stenosis B 30% narrowing the proximal portion of the prominent though nondominant circumflex C dominant right coronary artery with 20% mid vessel narrowing 3. Moderately severe impairment in global LV function, estimated ejection fraction 30 - 35% with modest inferior hypokinesis and moderately severe anterior hypokinesis 4. Normal left-sided hemodynamic study 5. Successful PCI with deployment of drug-eluting stents in the mid LAD and prominent first diagonal, a complex bifurcation lesion with 10% residual narrowings at both sites following final stent deployment and dilatations Recommendations Cardiac Risk Reduction Program Aggressive Medical Therapy Medications Administered Aspirin (any) Ticagrelor Diagnostic Cath Approved by: Riley Cullen MD Date/Time: 11/11/2020 18:01:31 <ELECTRONICALLY SIGNED> By: Riley Cullen MD, [facility] 11/11/201802 02 02Riley Cullen MD, FACC /INF
[2020-11-12 00:41] VITALS: BP 114/58
[2020-11-12 04:30] VITALS: BP 101/62
[2020-11-12 04:41] LABS: HEMATOCRIT 30.4 % (37.0-47.0); HEMOGLOBIN 9.8 gm/dL (12.0-15.0); MCH 30.9 pg (26.0-34.0); MCHC 32.4 g/dL (28.0-37.0); MCV 95.3 fL (80.0-100.0); MPV 9.4 fl. (7.2-11.1); RBC 3.19 mil/uL (4.20-5.00); RDW-CV 15.4 % (10.5-14.5); WBC 6.7 thou/uL (4.0-11.0)
[2020-11-12 05:02] LABS: ALBUMIN 2.5 g/dL (3.4-5.0); POTASSIUM 3.3 mmol/L (3.5-5.1); TOTAL BILIRUBIN 0.2 mg/dL (<0.1-1.0); TOTAL PROTEIN 5.7 g/dL (6.4-8.2)
[2020-11-12 05:04] LABS: CREATININE 4.3 mg/dL (0.6-1.3)
[2020-11-12 05:08] LABS: TROPONIN-I LEVEL 1.69 ng/mL (<0.06)
[2020-11-12] MEDS ORDERED: METOPROLOL TART25 MG PO ×2 (07:47→09:27)
[2020-11-12] MEDS ORDERED: BAYER CHEWABLE81 MG PO ×2 (07:47→09:27)
[2020-11-12] MEDS ORDERED: BRILINTA90 MG PO ×2 (07:48→09:27)
[2020-11-12 08:00] VITALS: BP 140/88
[2020-11-12] MEDS ORDERED: COLACE 100 MG100 MG PO (09:26)
[2020-11-12] MEDS ORDERED: ONDANSETRON HCL4 M2 PO (09:26)
[2020-11-12] MEDS ORDERED: BANOPHEN25 MG PO ×2 (09:35→09:39)
[2020-11-12 11:33] VITALS: BP 140/88
[2020-11-12 11:48] VITALS: BP 140/88
[2020-11-12 12:00] VITALS: BP 141/79
--- NOTE | 2020-11-12 14:21 | EKG ---
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 : 1970 Requested By: Riley Cullen Order Number: [id number] Reading MD: Jaylon Rm Measurements Intervals [place] Rate: 65 P: 47 [place]: 162 QRS: 10 QRSD: 92 T: 166 QT: 503 QTc: 524 Interpretive Statements Sinus rhythm LVH with secondary repolarization abnormality Anterior ST elevation, probably due to LVH Prolonged QT interval Compared to ECG 11/11/2020 12:26:21 Left ventricular hypertrophy now present Early repolarization now present ST (T wave) deviation now present Prolonged QT interval now present Myocardial infarct finding no longer present Electronically Signed On 11-12-2020 14:21:02 CDT by Jaylon Rm [email or web address] <ELECTRONICALLY SIGNED> By: Jaylon Rm MD, [facility] 11/12/20 1421 0 0 Jaylon Rm MD, [facility] /EPI
--- NOTE | 2020-11-12 18:56 | EKG ---
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 : 1970 Requested By: Jt Hinds Order Number: [id number] Reading MD: Jaylon Rm Measurements Intervals [place] Rate: 76 P: 38 IA: 163 QRS: 4 QRSD: 96 T: 154 QT: 425 QTc: 478 Interpretive Statements Sinus rhythm Probable anterior infarct, age indeterminate Compared to ECG 11/10/2020 05:57:21 Myocardial infarct finding now present Left ventricular hypertrophy no longer present ST (T wave) deviation no longer present Electronically Signed On 11-12-2020 18:56:28 CDT by Jaylon Rm [email or web address] <ELECTRONICALLY SIGNED> By: Jaylon Rm MD, FACC 11/12/20 1856 1226 122 Jaylon Rm MD, [facility] /EPI
== END 2020-11-12 13:04 | disposition home or self-care (01) | DRG 247 ==
LOC: M.ERS 12:06 → M.TBA-ER 12:59 → M.2W 14:40
PROVIDERS: Emergency Medicine; Internal Medicine; ADMIT Internal Medicine; ATTEND Internal Medicine
PROC: B211YZZ Fluoroscopy of Multiple Coronary Arteries using Other Contrast (ICD-10-PCS; principal; 2020-11-11)
PROC: 027135Z Dilation of Coronary Artery, Two Arteries with Two Drug-eluting Intraluminal Devices, Percutaneous Approach (ICD-10-PCS; principal; 2020-11-11)
PROC: 4A023N7 Measurement of Cardiac Sampling and Pressure, Left Heart, Percutaneous Approach (ICD-10-PCS; principal; 2020-11-11)
PROC: B215YZZ Fluoroscopy of Left Heart using Other Contrast (ICD-10-PCS; principal; 2020-11-11)
PROC: B41FYZZ Fluoroscopy of Right Lower Extremity Arteries using Other Contrast (ICD-10-PCS; principal; 2020-11-11)
PROC: 5A1D70Z Performance of Urinary Filtration, Intermittent, Less than 6 Hours Per Day (ICD-10-PCS; principal; 2020-11-11)
DX: I21.4 Non-ST elevation (NSTEMI) myocardial infarction (principal); I12.0 Hypertensive chronic kidney disease with stage 5 chronic kidney disease or end stage renal disease; E03.9 Hypothyroidism, unspecified; I24.9 Acute ischemic heart disease, unspecified; E11.22 Type 2 diabetes mellitus with diabetic chronic kidney disease; F12.90 Cannabis use, unspecified, uncomplicated; E11.65 Type 2 diabetes mellitus with hyperglycemia; F17.210 Nicotine dependence, cigarettes, uncomplicated; E78.00 Pure hypercholesterolemia, unspecified; F32.9 Major depressive disorder, single episode, unspecified; Z20.822 Contact with and (suspected) exposure to COVID-19; K21.9 Gastro-esophageal reflux disease without esophagitis; R11.2 Nausea with vomiting, unspecified; Z79.4 Long term (current) use of insulin; Z85.41 Personal history of malignant neoplasm of cervix uteri; Z90.710 Acquired absence of both cervix and uterus; Z90.6 Acquired absence of other parts of urinary tract

== ENCOUNTER 2020-11-21 10:30 | Inpatient (IN) | payer MEDICARE, MEDICAID ==
[~2020-11-21] VITALS: Ht 177.8 cm; Wt 76.2 kg
--- NOTE | ~2020-11-21 | CON ---
[address] [address] CONSULTATION Name: MARYAN FERNANDO Room: [address] IN M.R.#: [id number] Admission: 11/21/20 Attend Phys: Gentry Horowitz MD Discharge: Date of : 72 Report #: [id number] THIS REPORT FOR: cc: Miguel Luna Adam J DO Khan, Abid R. MD ~ DOC #: [id number] Nadja Carlton MD NEPHROLOGY CONSULTATION REASON FOR CONSULTATION: End-stage kidney disease. HISTORY OF PRESENT ILLNESS: A 50-year-old female who was recently hospitalized and is readmitted due to positive blood culture. She was recently hospitalized with altered mental status and DKA, was started on DKA protocol, improved, but then returned because of the positive blood culture. Infectious disease is following and we are awaiting results of blood cultures to determine if the dialysis catheter potentially needs to be removed. The patient appears well, has no complaints at the present time, tolerated dialysis well today. REVIEW OF SYSTEMS: Constitutional, psych, heme, eyes, ENT, respiratory, cardiac, GI, , endocrine, all negative except as documented above and as best can be ascertained. PAST MEDICAL HISTORY: End-stage kidney disease, history of diabetes, hypothyroidism, cervical cancer. PAST SURGICAL HISTORY: Hysterectomy. SOCIAL HISTORY: Positive for tobacco and cannabis. FAMILY HISTORY: Not pertinent to current clinical case. PHYSICAL EXAMINATION: VITAL SIGNS: Blood pressure 147/89, pulse 78, respirations 17, temperature 36.6. GENERAL: No acute distress. EYES: Open. EARS: Externally normal. NECK: Supple. CARDIOVASCULAR: Regular rate. MUSCULOSKELETAL: Nontender. ABDOMEN: Soft. PSYCHIATRIC: Awake, alert. [address] [address] CONSULTATION Name: MARYAN FERNANDO Room: [address] IN Madiha.#: [id number] Admission: 11/21/20 Attend Phys: Gentry Horowitz MD Discharge: Date of : 72 Report #: [id number] LABORATORY DATA: White cell count 6.5, hemoglobin 7.7, platelets 206. Sodium 141, potassium 4.5, chloride 104, bicarbonate 31, BUN 31, creatinine 4.6, glucose 95, calcium 7.8. ASSESSMENT: 1. End-stage kidney disease, on hemodialysis Wednesday, Wednesday and Wednesday at the [facility] dialysis unit. 2. Hypoalbuminemia. 3. Coronary artery disease. 4. Positive blood culture. PLAN: Tolerated dialysis today. We will follow for dialysis needs. Infectious disease is following. Blood culture results are pending. This will help determine if any intervention needs to be done with regard to dialysis catheter. Thank you for requesting my opinion in the care and management of this patient. MD DIAN Santo/CONG By: 1232 2345Abid Patti Carlton MD /nt
[~2020-11-21 10:30] MED LIST changes: +BANOPHEN25 MG PO; +BAYER CHEWABLE81 MG PO; +BRILINTA90 MG PO; +COLACE 100 MG100 MG PO; +METOPROLOL TART25 MG PO; +ONDANSETRON HCL4 M2 PO
[2020-11-21 10:40] VITALS: BP 139/67
[2020-11-21 11:04] LABS: ABSOLUTE BASOPHILS 0.1 thou/uL (0.0-0.2); ABSOLUTE EOSINOPHILS 0.2 thou/uL (0.0-0.7); ABSOLUTE LYMPHOCYTES 0.6 thou/uL (0.8-5.3); ABSOLUTE MONOCYTES 0.4 thou/uL (0.0-1.2); ABSOLUTE NEUTROPHILS 5.1 thou/uL (1.6-8.1); BASOPHILS 1.2 %; HEMATOCRIT 28.5 % (37.0-47.0); LYMPHOCYTES 9.4 %; MCHC 31.6 g/dL (28.0-37.0); MCV 98.2 fL (80.0-100.0); MPV 9.1 fl. (7.2-11.1); NUCLEATED RBCS 0 /100WBC; PLATELET COUNT* 216 thou/uL (150-400); POLYS 80.4 %; RDW-CV 15.4 % (10.5-14.5); WBC 6.3 thou/uL (4.0-11.0)
[2020-11-21 11:16] LABS: CALCIUM 8.3 mg/dL (8.5-10.1); CREATININE 3.7 mg/dL (0.6-1.3); POTASSIUM 5.1 mmol/L (3.5-5.1)
[2020-11-21 11:32] LABS: ALBUMIN 2.9 g/dL (3.4-5.0); TOTAL BILIRUBIN 0.4 mg/dL (<0.1-1.0); TOTAL PROTEIN 6.7 g/dL (6.4-8.2)
[2020-11-21 12:42] LABS: URINE BILIRUBIN NEGATIVE (Negative); URINE BLOOD 1+ (Negative); URINE CLARITY CLEAR; URINE COLOR YELLOW; URINE GLUCOSE-RANDOM 2+ (Negative); URINE KETONES TRACE (Negative); URINE LEUKOCYTES-REFLEX NEGATIVE (Negative); URINE NITRITE-REFLEX NEGATIVE (Negative); URINE PROTEIN 3+ (Negative); URINE UROBILINOGEN 0.2 E.U./dl (0.2-1.0)
[2020-11-21 12:49] LABS: CASTS None Seen /LPF (None Seen); MUCUS 0-3 Light strn/LPF (None Seen); SQUAMOUS 0-3 Few /LPF (0-3); URINE RBC 3-10 Few /HPF (0-2); URINE WBC-REFLEX 6-15 Few /HPF (0-5)
[2020-11-21 12:50] LABS: CRYSTALS None Seen /LPF (None Seen)
[2020-11-21 15:07] VITALS: BP 126/77
[2020-11-21 15:28] VITALS: BP 126/82
--- NOTE | 2020-11-21 15:48 | EKG ---
[place] [address] ELECTROCARDIOGRAM REPORT Name: MARYAN FERNANDO Room: [address] ADM IN M.R.#: [id number] Admission: 11/21/20 Attend Phys: Gentry Horowitz, Discharge: Date of : 72 Date of Service: 11/21/20 1147 Report #: [id number] THIS REPORT FOR: //name// [facility] ED Test Date: 2020-11-21 Test Time: 11:47:32 Pat Name: MARYAN FERNANDO Department: Room: [facility] Gender: F X Ray Consultant: GIOVANNA : 1970 Requested By: Stuart Bojorquez Order Number: [id number] MD: De Iniguez Measurements Intervals [place] Rate: 70 P: 30 MD: 168 QRS: -8 QRSD: 92 T: 100 QT: 433 QTc: 468 Interpretive Statements Sinus rhythm Consider left ventricular hypertrophy Anterior Q waves, possibly due to LVH Nonspecific T abnormalities, lateral leads Compared to ECG 11/17/2020 14:26:27 Left ventricular hypertrophy now present Electronically Signed On 11-21-2020 15:48:39 CDT by De Iniguez [email or web address] <ELECTRONICALLY SIGNED> By: De Iniguez MD, [facility] 11/21/20 1548 1147 1147 De Iniguez MD, [facility] /EPI
[2020-11-21 20:00] VITALS: BP 94/62
[2020-11-21 23:48] VITALS: BP 115/68
[2020-11-22 03:57] VITALS: BP 125/79
[2020-11-22 04:19] LABS: ABSOLUTE BASOPHILS 0.1 thou/uL (0.0-0.2); ABSOLUTE EOSINOPHILS 0.3 thou/uL (0.0-0.7); ABSOLUTE LYMPHOCYTES 1.7 thou/uL (0.8-5.3); ABSOLUTE MONOCYTES 0.5 thou/uL (0.0-1.2); ABSOLUTE NEUTROPHILS 3.9 thou/uL (1.6-8.1); BASOPHILS 1.2 %; EOSINOPHILS 4.8 %; HEMOGLOBIN 7.7 gm/dL (12.0-15.0); LYMPHOCYTES 25.5 %; MCH 30.8 pg (26.0-34.0); MCV 96.4 fL (80.0-100.0); MPV 9.5 fl. (7.2-11.1); NUCLEATED RBCS 0 /100WBC; PLATELET COUNT* 206 thou/uL (150-400); POLYS 60.5 %; RBC 2.49 mil/uL (4.20-5.00); RDW-CV 15.2 % (10.5-14.5); WBC 6.5 thou/uL (4.0-11.0)
[2020-11-22 04:20] LABS: CALCIUM 7.8 mg/dL (8.5-10.1); CREATININE 4.6 mg/dL (0.6-1.3); POTASSIUM 4.5 mmol/L (3.5-5.1)
[2020-11-22 07:55] VITALS: BP 141/88
[2020-11-22 12:03] VITALS: BP 147/89
[2020-11-22 16:00] VITALS: BP 128/77
[2020-11-22 20:00] VITALS: BP 136/82
[2020-11-23] VITALS: BP 126/77
[2020-11-23 04:41] VITALS: BP 131/81
[2020-11-23 08:09] VITALS: BP 141/88
[2020-11-23 12:00] VITALS: BP 114/78
[2020-11-23 16:00] VITALS: BP 98/68
[2020-11-23 20:00] VITALS: BP 126/74
[2020-11-24 02:45] VITALS: BP 143/87
[2020-11-24 03:58] LABS: ABSOLUTE BASOPHILS 0.1 thou/uL (0.0-0.2); ABSOLUTE EOSINOPHILS 0.2 thou/uL (0.0-0.7); ABSOLUTE LYMPHOCYTES 1.3 thou/uL (0.8-5.3); ABSOLUTE MONOCYTES 0.4 thou/uL (0.0-1.2); ABSOLUTE NEUTROPHILS 3.5 thou/uL (1.6-8.1); BASOPHILS 1.1 %; EOSINOPHILS 4.4 %; HEMATOCRIT 24.4 % (37.0-47.0); HEMOGLOBIN 7.9 gm/dL (12.0-15.0); LYMPHOCYTES 24.1 %; MCHC 32.5 g/dL (28.0-37.0); MCV 95.4 fL (80.0-100.0); MONOCYTES 6.4 %; MPV 9.7 fl. (7.2-11.1); NUCLEATED RBCS 0 /100WBC; PLATELET COUNT* 199 thou/uL (150-400); RBC 2.56 mil/uL (4.20-5.00); RDW-CV 15.6 % (10.5-14.5); WBC 5.5 thou/uL (4.0-11.0)
[2020-11-24 04:19] LABS: ALBUMIN 2.4 g/dL (3.4-5.0); CALCIUM 7.7 mg/dL (8.5-10.1); CREATININE 4.4 mg/dL (0.6-1.3); POTASSIUM 5.1 mmol/L (3.5-5.1); TOTAL BILIRUBIN 0.2 mg/dL (<0.1-1.0); TOTAL PROTEIN 5.7 g/dL (6.4-8.2)
[2020-11-24 09:15] VITALS: BP 143/87
[2020-11-24 14:12] VITALS: BP 148/96
[2020-11-24 18:19] VITALS: BP 145/90
[2020-11-24 23:43] VITALS: BP 122/72
[2020-11-25 03:53] VITALS: BP 136/90
[2020-11-25 04:58] LABS: ABSOLUTE BASOPHILS 0.1 thou/uL (0.0-0.2); ABSOLUTE EOSINOPHILS 0.3 thou/uL (0.0-0.7); ABSOLUTE LYMPHOCYTES 1.4 thou/uL (0.8-5.3); ABSOLUTE MONOCYTES 0.4 thou/uL (0.0-1.2); ABSOLUTE NEUTROPHILS 3.7 thou/uL (1.6-8.1); BASOPHILS 1.2 %; EOSINOPHILS 4.9 %; HEMATOCRIT 23.6 % (37.0-47.0); HEMOGLOBIN 7.6 gm/dL (12.0-15.0); LYMPHOCYTES 24.1 %; MCH 30.9 pg (26.0-34.0); MCHC 32.3 g/dL (28.0-37.0); MCV 95.6 fL (80.0-100.0); MONOCYTES 6.1 %; MPV 9.8 fl. (7.2-11.1); NUCLEATED RBCS 0 /100WBC; PLATELET COUNT* 205 thou/uL (150-400); POLYS 63.7 %; RBC 2.47 mil/uL (4.20-5.00); RDW-CV 15.6 % (10.5-14.5); WBC 5.9 thou/uL (4.0-11.0)
[2020-11-25 05:04] LABS: CALCIUM 7.5 mg/dL (8.5-10.1); POTASSIUM 5.5 mmol/L (3.5-5.1)
[2020-11-25 08:21] VITALS: BP 156/99
[2020-11-25] MEDS ORDERED: NEURONTIN 300M300 M2 PO (10:27)
[2020-11-25 12:58] VITALS: BP 156/99
[2020-11-25 15:25] VITALS: BP 156/99
== END 2020-11-25 16:29 | disposition home health service (06) | DRG 689 ==
LOC: M.ERS 10:30 → M.TBA-ER 11:00 → M.2W 11:00
PROVIDERS: Emergency Medicine Emergency Medical Services; Internal Medicine Nephrology; ADMIT Internal Medicine; ATTEND Internal Medicine
PROC: 5A1D70Z Performance of Urinary Filtration, Intermittent, Less than 6 Hours Per Day (ICD-10-PCS; principal; 2020-11-22)
PROC: 5A1D70Z Performance of Urinary Filtration, Intermittent, Less than 6 Hours Per Day (ICD-10-PCS; 2020-11-25)
DX: N39.0 Urinary tract infection, site not specified (principal); N18.6 End stage renal disease; E03.9 Hypothyroidism, unspecified; E11.22 Type 2 diabetes mellitus with diabetic chronic kidney disease; I25.10 Atherosclerotic heart disease of native coronary artery without angina pectoris; F17.200 Nicotine dependence, unspecified, uncomplicated; E88.09 Other disorders of plasma-protein metabolism, not elsewhere classified; Z20.822 Contact with and (suspected) exposure to COVID-19; Z85.41 Personal history of malignant neoplasm of cervix uteri; Z90.710 Acquired absence of both cervix and uterus; Z99.2 Dependence on renal dialysis; Z79.82 Long term (current) use of aspirin; Z79.899 Other long term (current) drug therapy; Z79.4 Long term (current) use of insulin; Y92.89 Other specified places as the place of occurrence of the external cause

== ENCOUNTER 2020-12-13 10:42 | Inpatient (IN) | payer MEDICARE, MEDICAID ==
[~2020-12-13] VITALS: Ht 177.8 cm; Wt 74.8 kg
--- NOTE | ~2020-12-13 | CON ---
[address] [address] CONSULTATION Name: MARYAN FERNANDO Room: [address] IN .R.#: [id number] Admission: 12/13/20 Attend Phys: Fabien Moulton Discharge: Date of : 72 Report #: [id number] THIS REPORT FOR: cc: Migule Luna Adam J DO Arakelov, Alexandr V. MD ~ DOC #: [id number] Chris Orosco MD DATE OF CONSULTATION: 12/13/2020 HISTORY OF PRESENT ILLNESS: The patient is a 50-year-old female with medical history significant for end-stage renal disease. She missed her dialysis for last 10 days, missed four treatments, cannot give me good explanation why she missed dialysis, presents not feeling well, was found to be fluid overloaded and hyperkalemic. PAST MEDICAL HISTORY: 1. End-stage renal disease. 2. Noncompliance. 3. Diabetes mellitus type 1. 4. Hypertension. 5. Coronary artery disease. SOCIAL HISTORY: Negative tobacco or alcohol use. FAMILY HISTORY: Positive for diabetes and hypertension. REVIEW OF SYSTEMS: Positive for being very weak and short of breath. PHYSICAL EXAMINATION: GENERAL: Examined on dialysis. Dialysis via right internal jugular vein tunneled dialysis catheter. VITAL SIGNS: Reviewed. NECK: Supple. LUNGS: With bibasilar crackles. HEART: Very distant heart tones. ABDOMEN: Soft. LOWER EXTREMITIES: Trace edema. LABORATORY DATA: Her potassium was 7. Her BUN was 64 and creatinine 8.4. ASSESSMENT: 1. End-stage renal disease. 2. Hyperkalemia due to noncompliance with dialysis regimen. 3. Noncompliance with dialysis regimen. [address] [address] CONSULTATION Name: MARYAN FERNANDO Room: [address]#: [id number] Admission: 12/13/20 Attend Phys: Fabien Moulton Discharge: Date of : 72 Report #: [id number] 4. Diabetes mellitus type 2. 5. Hypertension. 6. Coronary artery disease. PLAN: Dialysis today for 3 hours and then dialysis again tomorrow. Counseling her regarding compliance and if she continues to be noncompliant, her prognosis is very poor and life expectancy less than a year. MD SarabiaA By: 1406 1450Chris Orosco MD /nt
[2020-12-13 10:47] VITALS: BP 150/99
[2020-12-13 11:24] LABS: ABSOLUTE BASOPHILS 0.1 thou/uL (0.0-0.2); ABSOLUTE EOSINOPHILS 0.1 thou/uL (0.0-0.7); ABSOLUTE LYMPHOCYTES 0.9 thou/uL (0.8-5.3); ABSOLUTE MONOCYTES 0.4 thou/uL (0.0-1.2); ABSOLUTE NEUTROPHILS 4.6 thou/uL (1.6-8.1); BASOPHILS 0.9 %; EOSINOPHILS 1.8 %; HEMATOCRIT 29.6 % (37.0-47.0); HEMOGLOBIN 9.8 gm/dL (12.0-15.0); LYMPHOCYTES 15.3 %; MCH 32.2 pg (26.0-34.0); MCHC 33.3 g/dL (28.0-37.0); MCV 96.9 fL (80.0-100.0); MONOCYTES 5.9 %; MPV 7.8 fl. (7.2-11.1); NUCLEATED RBCS 0 /100WBC; PLATELET COUNT* 255 thou/uL (150-400); POLYS 76.1 %; RBC 3.05 mil/uL (4.20-5.00); RDW-CV 17.1 % (10.5-14.5)
[2020-12-13 11:27] LABS: BE -5.1 mmol/L (-2 to +3); PCO2 39.8 mmHg (35.0-45.0); PO2 61.2 mmHg (75.0-100.0); pH 7.328 (7.340-7.450)
[2020-12-13 11:33] LABS: ANION GAP 12 mmol/L (7-16); BUN 64 mg/dL (7-18); CALCIUM 7.8 mg/dL (8.5-10.1); CHLORIDE 99 mmol/L (98-107); CO2 23 mmol/L (21-32); CREATININE 8.4 mg/dL (0.6-1.3); GLUCOSE 60 mg/dL (70-99); SODIUM 134 mmol/L (136-145)
[2020-12-13 11:36] LABS: APTT 30.8 Seconds (25.0-31.3); INR 1.1; PROTIME 11.2 Seconds (9.20-11.50)
[2020-12-13 11:44] LABS: ALBUMIN 3.1 g/dL (3.4-5.0); ALKALINE PHOSPHATASE 83 U/L (46-116); NT-PRO BRAIN NAT PEPTIDE > 35000 pg/mL (<300); SGOT 19 U/L (15-37); SGPT 19 U/L (30-65); TOTAL BILIRUBIN 0.5 mg/dL (<0.1-1.0); TOTAL PROTEIN 7.3 g/dL (6.4-8.2)
[2020-12-13 13:45] VITALS: BP 134/97
--- NOTE | 2020-12-13 16:01 | EKG ---
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 : 1970 Requested By: Norris Pandya Order Number: [id number] MD: De Iniguez Measurements Intervals [place] Rate: 79 P: 49 ID: 169 QRS: -17 QRSD: 102 T: 92 QT: 415 QTc: 476 Interpretive Statements Sinus rhythm Anterior infarct, old Nonspecific T abnormalities, lateral leads Compared to ECG 11/21/2020 11:47:32 Left ventricular hypertrophy no longer present T-wave abnormality still present Electronically Signed On 12-13-2020 16:01:07 CDT by De Iniguez [email or web address] <ELECTRONICALLY SIGNED> By: De Iniguez MD, [facility] 12/13/20 1601 01 01 De Iniguez MD, [facility] /EPI
[2020-12-13 17:45] VITALS: BP 141/79
[2020-12-13 20:14] VITALS: BP 121/100
[2020-12-14 00:38] VITALS: BP 150/82
[2020-12-14 04:54] VITALS: BP 138/92
[2020-12-14 05:47] LABS: ABSOLUTE LYMPHOCYTES 0.9 thou/uL (0.8-5.3); ABSOLUTE MONOCYTES 0.4 thou/uL (0.0-1.2); ABSOLUTE NEUTROPHILS 4.3 thou/uL (1.6-8.1); BASOPHILS 0.4 %; EOSINOPHILS 0.2 %; HEMATOCRIT 26.9 % (37.0-47.0); HEMOGLOBIN 8.9 gm/dL (12.0-15.0); LYMPHOCYTES 16.1 %; MCH 31.7 pg (26.0-34.0); MCHC 33.1 g/dL (28.0-37.0); MCV 95.5 fL (80.0-100.0); MONOCYTES 7.1 %; MPV 8.1 fl. (7.2-11.1); NUCLEATED RBCS 0 /100WBC; PLATELET COUNT* 238 thou/uL (150-400); POLYS 76.2 %; RBC 2.81 mil/uL (4.20-5.00); RDW-CV 16.5 % (10.5-14.5); WBC 5.6 thou/uL (4.0-11.0)
[2020-12-14 06:16] LABS: ALBUMIN 2.5 g/dL (3.4-5.0); CALCIUM 6.8 mg/dL (8.5-10.1); TOTAL BILIRUBIN 0.3 mg/dL (<0.1-1.0); TOTAL PROTEIN 6.3 g/dL (6.4-8.2)
[2020-12-14 06:17] LABS: CREATININE 5.3 mg/dL (0.6-1.3); POTASSIUM 4.9 mmol/L (3.5-5.1)
[2020-12-14 08:00] VITALS: BP 134/89
[2020-12-14 12:00] VITALS: BP 164/98
[2020-12-14 16:00] VITALS: BP 146/90
[2020-12-14 20:00] VITALS: BP 140/94
[2020-12-15 01:50] VITALS: BP 141/92
[2020-12-15 04:00] VITALS: BP 146/90
[2020-12-15 05:10] LABS: CALCIUM 7.1 mg/dL (8.5-10.1); POTASSIUM 4.5 mmol/L (3.5-5.1)
[2020-12-15 05:18] LABS: CREATININE 4.1 mg/dL (0.6-1.3)
[2020-12-15 05:34] LABS: ABSOLUTE BASOPHILS 0.1 thou/uL (0.0-0.2); ABSOLUTE EOSINOPHILS 0.1 thou/uL (0.0-0.7); ABSOLUTE LYMPHOCYTES 1.4 thou/uL (0.8-5.3); ABSOLUTE MONOCYTES 0.3 thou/uL (0.0-1.2); BASOPHILS 1.1 %; EOSINOPHILS 2.3 %; HEMATOCRIT 31.2 % (37.0-47.0); HEMOGLOBIN 10.2 gm/dL (12.0-15.0); LYMPHOCYTES 28.1 %; MCH 31.3 pg (26.0-34.0); MCHC 32.6 g/dL (28.0-37.0); MCV 95.9 fL (80.0-100.0); MPV 8.3 fl. (7.2-11.1); NUCLEATED RBCS 0 /100WBC; PLATELET COUNT* 264 thou/uL (150-400); POLYS 62.5 %; RBC 3.25 mil/uL (4.20-5.00); RDW-CV 16.3 % (10.5-14.5); WBC 4.9 thou/uL (4.0-11.0)
[2020-12-15] MEDS ORDERED: PREDNISONE 10 M10 MG PO (08:05)
[2020-12-15] MEDS ORDERED: VENTOLIN HFA 1818 GM INH (08:05)
[2020-12-15] MEDS ORDERED: AUGMENTIN 875-1 EACH PO (08:14)
[2020-12-15] MEDS ORDERED: TESSALON PERLE100 MG PO (08:28)
[2020-12-15] MEDS ORDERED: MUCINEX600 MG PO (08:28)
[2020-12-15 09:15] VITALS: BP 133/75
[2020-12-15 11:42] VITALS: BP 133/75
== END 2020-12-15 12:38 | disposition home or self-care (01) | DRG 291 ==
LOC: M.ERS 10:42 → M.2W 12:18 → M.TBA-ER 12:18 → M.2W 13:45
PROVIDERS: Family Medicine; ADMIT Internal Medicine; ATTEND Internal Medicine
PROC: 5A1D70Z Performance of Urinary Filtration, Intermittent, Less than 6 Hours Per Day (ICD-10-PCS; principal; 2020-12-13)
PROC: 5A1D70Z Performance of Urinary Filtration, Intermittent, Less than 6 Hours Per Day (ICD-10-PCS; 2020-12-15)
DX: I13.2 Hypertensive heart and chronic kidney disease with heart failure and with stage 5 chronic kidney disease, or end stage renal disease (principal); N17.0 Acute kidney failure with tubular necrosis; I50.33 Acute on chronic diastolic (congestive) heart failure; J96.01 Acute respiratory failure with hypoxia; N18.6 End stage renal disease; E87.1 Hypo-osmolality and hyponatremia; E87.5 Hyperkalemia; E10.22 Type 1 diabetes mellitus with diabetic chronic kidney disease; E03.9 Hypothyroidism, unspecified; F17.200 Nicotine dependence, unspecified, uncomplicated; E10.65 Type 1 diabetes mellitus with hyperglycemia; I25.10 Atherosclerotic heart disease of native coronary artery without angina pectoris; Z20.822 Contact with and (suspected) exposure to COVID-19; Z91.15 Patient's noncompliance with renal dialysis; Z90.710 Acquired absence of both cervix and uterus; Z85.41 Personal history of malignant neoplasm of cervix uteri; Z79.82 Long term (current) use of aspirin; Z79.899 Other long term (current) drug therapy; Z79.4 Long term (current) use of insulin; Z99.2 Dependence on renal dialysis; I25.2 Old myocardial infarction

== ENCOUNTER 2021-01-09 13:21 | Inpatient (IN) | payer MEDICARE, MEDICAID ==
[~2021-01-09] VITALS: Ht 177.8 cm; Wt 75.3 kg
[~2021-01-09 13:21] MED LIST changes: +AUGMENTIN 875-1 EACH PO; +MUCINEX600 MG PO; +PREDNISONE 10 M10 MG PO; +TESSALON PERLE100 MG PO; +VENTOLIN HFA 1818 GM INH
[2021-01-09 13:51] VITALS: BP 85/58
[2021-01-09 14:37] LABS: ABSOLUTE EOSINOPHILS 0.1 thou/uL (0.0-0.7); ABSOLUTE MONOCYTES 0.4 thou/uL (0.0-1.2); BASOPHILS 0.5 %; EOSINOPHILS 2.1 %; HEMATOCRIT 40.5 % (37.0-47.0); HEMOGLOBIN 13.2 gm/dL (12.0-15.0); LYMPHOCYTES 17.9 %; MCH 32.4 pg (26.0-34.0); MCHC 32.5 g/dL (28.0-37.0); MCV 99.7 fL (80.0-100.0); MONOCYTES 6.6 %; MPV 7.4 fl. (7.2-11.1); NUCLEATED RBCS 0 /100WBC; PLATELET COUNT* 376 thou/uL (150-400); POLYS 72.9 %; RBC 4.06 mil/uL (4.20-5.00); RDW-CV 19.5 % (10.5-14.5); WBC 5.4 thou/uL (4.0-11.0)
[2021-01-09 14:46] LABS: ANION GAP 6 mmol/L (7-16); BUN 19 mg/dL (7-18); CHLORIDE 100 mmol/L (98-107); CO2 32 mmol/L (21-32); CREATININE 4.1 mg/dL (0.6-1.3); GLUCOSE 71 mg/dL (70-99); POTASSIUM 4.4 mmol/L (3.5-5.1); SODIUM 138 mmol/L (136-145)
[2021-01-09 14:50] LABS: ALBUMIN 2.6 g/dL (3.4-5.0); ALKALINE PHOSPHATASE 86 U/L (46-116); SGOT 22 U/L (15-37); TOTAL PROTEIN 6.7 g/dL (6.4-8.2)
[2021-01-09 14:51] LABS: SGPT < 6 U/L (30-65); TOTAL BILIRUBIN < 0.1 mg/dL (<0.1-1.0)
[2021-01-09 16:37] LABS: URINE BILIRUBIN NEGATIVE (Negative); URINE BLOOD TRACE (Negative); URINE CLARITY HAZY; URINE COLOR YELLOW; URINE GLUCOSE-RANDOM NEGATIVE (Negative); URINE KETONES TRACE (Negative); URINE LEUKOCYTES-REFLEX TRACE (Negative); URINE NITRITE-REFLEX NEGATIVE (Negative); URINE PROTEIN 3+ (Negative); URINE UROBILINOGEN 0.2 E.U./dl (0.2-1.0)
[2021-01-09 16:39] LABS: SQUAMOUS >10 Many /LPF (0-3)
[2021-01-09 16:40] LABS: BACTERIA-REFLEX 1-9 Few /HPF (None Seen); CASTS None Seen /LPF (None Seen); CRYSTALS None Seen /LPF (None Seen); MUCUS 0-3 Light strn/LPF (None Seen); URINE RBC None Seen /HPF (0-2); URINE WBC-REFLEX 0-5 Rare /HPF (0-5)
[2021-01-09 21:16] VITALS: BP 120/80
[2021-01-10 04:00] VITALS: BP 144/81
[2021-01-10 04:05] LABS: HEMATOCRIT 37.1 % (37.0-47.0); HEMOGLOBIN 12.2 gm/dL (12.0-15.0); MCH 32.9 pg (26.0-34.0); MCHC 32.9 g/dL (28.0-37.0); MCV 99.7 fL (80.0-100.0); MPV 7.3 fl. (7.2-11.1); RBC 3.72 mil/uL (4.20-5.00); RDW-CV 19.8 % (10.5-14.5); WBC 6.1 thou/uL (4.0-11.0)
[2021-01-10 04:23] LABS: CALCIUM 7.4 mg/dL (8.5-10.1); CREATININE 4.4 mg/dL (0.6-1.3)
--- NOTE | 2021-01-10 11:57 | EKG ---
[place] [address] ELECTROCARDIOGRAM REPORT Name: MARYAN FERNANDO Room: [address] ADM IN M.R.#: [id number] Admission: 01/09/21 Attend Phys: Mary Anne Lowry, Discharge: Date of : 72 Date of Service: 01/09/21 1413 Report #: [id number] THIS REPORT FOR: //name// 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1970 Requested By: Regi Edmond Order Number: [id number] MD: De Iniguez Measurements Intervals [place] Rate: 89 P: 32 NE: 155 QRS: -4 QRSD: 79 T: 74 QT: 395 QTc: 481 Interpretive Statements Sinus rhythm Anterior infarct, old Baseline wander in lead(s) II,III,aVF Compared to ECG 12/13/2020 11:02:47 T-wave abnormality no longer present Myocardial infarct finding still present Electronically Signed On 01-10-2021 11:57:40 CDT by De Iniguez [email or web address] <ELECTRONICALLY SIGNED> By: De Iniguez MD, [facility] 01/10/21 1157 1413 1413 De Iniguez MD, [facility] /EPI
[2021-01-10 12:00] VITALS: BP 157/99
[2021-01-10 22:26] VITALS: BP 152/102
[2021-01-11] VITALS: BP 146/91
[2021-01-11 05:00] VITALS: BP 148/96
[2021-01-11 05:36] LABS: CALCIUM 7.2 mg/dL (8.5-10.1); CREATININE 3.7 mg/dL (0.6-1.3); POTASSIUM 4.7 mmol/L (3.5-5.1)
[2021-01-11 05:47] LABS: HEMATOCRIT 34.3 % (37.0-47.0); HEMOGLOBIN 11.1 gm/dL (12.0-15.0); MCH 32.3 pg (26.0-34.0); MCHC 32.3 g/dL (28.0-37.0); MPV 7.8 fl. (7.2-11.1); RBC 3.43 mil/uL (4.20-5.00)
[2021-01-11 08:00] VITALS: BP 124/71
[2021-01-11 13:52] VITALS: BP 144/94
[2021-01-11 18:17] VITALS: BP 114/73
[2021-01-12] VITALS: BP 157/96
[2021-01-12 04:00] VITALS: BP 144/88
[2021-01-12 04:07] LABS: HEMATOCRIT 33.5 % (37.0-47.0); HEMOGLOBIN 10.9 gm/dL (12.0-15.0); MCH 33.2 pg (26.0-34.0); MCHC 32.5 g/dL (28.0-37.0); MPV 7.8 fl. (7.2-11.1); RBC 3.28 mil/uL (4.20-5.00); RDW-CV 19.7 % (10.5-14.5); WBC 6.9 thou/uL (4.0-11.0)
[2021-01-12 04:18] LABS: CALCIUM 6.8 mg/dL (8.5-10.1); POTASSIUM 5.2 mmol/L (3.5-5.1)
[2021-01-12 04:24] LABS: CREATININE 4.7 mg/dL (0.6-1.3)
[2021-01-12 08:00] VITALS: BP 164/96
[2021-01-12 12:00] VITALS: BP 143/94
--- NOTE | 2021-01-12 13:25 | CON ---
[address] [address] CONSULTATION Name: MARYAN FERNANDO Room: [address] IN M.R.#: [id number] Admission: 01/09/21 Attend Phys: Mary Anne Lowry MD Discharge: Date of : 72 Report #: [id number] THIS REPORT FOR: cc: Miguel Luna Adam J DO Khan, Abid R. MD ~ DOC #: [id number] Nadja Carlton MD DATE OF CONSULTATION: 01/10/2021 CONSULTING PHYSICIAN: Dr. Lowry. REASON FOR CONSULTATION: End-stage kidney disease. HISTORY OF PRESENT ILLNESS: A 50-year-old female with a history of end-stage kidney disease, on hemodialysis, admitted with diarrhea. She is seen on dialysis, is tolerating treatment well, has no complaints presently. REVIEW OF SYSTEMS: Constitutional, psych, heme, eyes, ENT, respiratory, cardiac, GI, , endocrine, all negative except as documented above. PAST MEDICAL HISTORY: End-stage kidney disease, history of diabetes, hypothyroidism, cervical cancer. PAST SURGICAL HISTORY: Positive for hysterectomy. SOCIAL HISTORY: Positive for tobacco and cannabis. FAMILY HISTORY: Not pertinent to current clinical case. PHYSICAL EXAMINATION: VITAL SIGNS: Blood pressure is 157/99, pulse 84, respirations 18, temperature 36.8. GENERAL: No acute distress. ENT: Normal. Ears externally normal. NECK: Supple. CARDIOVASCULAR: Regular rate. LUNGS: No crackles. ABDOMEN: Soft. MUSCULOSKELETAL: Nontender. PSYCHIATRIC: Awake, alert. LABORATORY DATA: White cell count 6.1, hemoglobin 12.2, platelets 385. Sodium 138, potassium 4, chloride 102, bicarbonate 29, BUN 24, creatinine 4.4, glucose was 35, now 96, calcium 7.4. [address] [address] CONSULTATION Name: MARYAN FERNANDO Room: [address]#: [id number] Admission: 01/09/21 Attend Phys: Mary Anne Lowry MD Discharge: Date of : 72 Report #: [id number] ASSESSMENT: 1. End-stage kidney disease, on hemodialysis Wednesday, Wednesday and Wednesday at the [place] dialysis clinic. 2. Hypoalbuminemia. 3. Coronary artery disease. 4. Diabetes mellitus. 5. History of cervical cancer. PLAN: Seen on dialysis, tolerating treatment well. We will follow for dialysis needs. Thank you for requesting my opinion in the care and management of this patient. Nadja Carlton MD [facility] <ELECTRONICALLY SIGNED> By: Nadja Carlton MD 01/12/21 1325 1528 2050Abid Patti Carlton MD /rene
[2021-01-12 16:00] VITALS: BP 145/91
[2021-01-12 23:41] VITALS: BP 132/78
[2021-01-13 05:21] LABS: HEMATOCRIT 35.2 % (37.0-47.0); HEMOGLOBIN 11.5 gm/dL (12.0-15.0); MCHC 32.7 g/dL (28.0-37.0); MPV 7.5 fl. (7.2-11.1); RBC 3.48 mil/uL (4.20-5.00); RDW-CV 19.7 % (10.5-14.5); WBC 8.8 thou/uL (4.0-11.0)
[2021-01-13 05:34] LABS: POTASSIUM 5.3 mmol/L (3.5-5.1)
[2021-01-13 07:40] VITALS: BP 147/100
[2021-01-13 11:57] VITALS: BP 132/84
[2021-01-13 15:20] VITALS: BP 132/84
[2021-01-13 15:23] VITALS: BP 132/84
[2021-01-13 16:35] VITALS: BP 149/93
== END 2021-01-13 16:40 | disposition home health service (06) | DRG 391 ==
LOC: M.ERS 13:21 → M.TBA-ER 17:15 → M.2W 17:26
PROVIDERS: Family Medicine; Physician Assistant; ADMIT Internal Medicine; ATTEND Internal Medicine
PROC: 5A1D70Z Performance of Urinary Filtration, Intermittent, Less than 6 Hours Per Day (ICD-10-PCS; principal; 2021-01-10)
PROC: 5A1D70Z Performance of Urinary Filtration, Intermittent, Less than 6 Hours Per Day (ICD-10-PCS; 2021-01-13)
DX: A08.4 Viral intestinal infection, unspecified (principal); N18.6 End stage renal disease; N39.0 Urinary tract infection, site not specified; I13.2 Hypertensive heart and chronic kidney disease with heart failure and with stage 5 chronic kidney disease, or end stage renal disease; I50.32 Chronic diastolic (congestive) heart failure; E44.1 Mild protein-calorie malnutrition; E86.0 Dehydration; I95.1 Orthostatic hypotension; E03.9 Hypothyroidism, unspecified; S00.83XA Contusion of other part of head, initial encounter; W18.39XA Other fall on same level, initial encounter; I25.10 Atherosclerotic heart disease of native coronary artery without angina pectoris; D64.9 Anemia, unspecified; K21.9 Gastro-esophageal reflux disease without esophagitis; F12.90 Cannabis use, unspecified, uncomplicated; E78.5 Hyperlipidemia, unspecified; E88.09 Other disorders of plasma-protein metabolism, not elsewhere classified; E11.22 Type 2 diabetes mellitus with diabetic chronic kidney disease; Z20.822 Contact with and (suspected) exposure to COVID-19; Z68.23 Body mass index [BMI] 23.0-23.9, adult; Z90.49 Acquired absence of other specified parts of digestive tract; Z90.710 Acquired absence of both cervix and uterus; Z85.41 Personal history of malignant neoplasm of cervix uteri; Z79.899 Other long term (current) drug therapy; Z79.4 Long term (current) use of insulin; Z79.82 Long term (current) use of aspirin; Z91.15 Patient's noncompliance with renal dialysis; Y93.89 Activity, other specified; Y92.89 Other specified places as the place of occurrence of the external cause; Y99.8 Other external cause status; Z99.2 Dependence on renal dialysis

== ENCOUNTER 2021-02-03 06:01 | Emergency (ER) | payer MEDICARE, MEDICAID ==
[~2021-02-03] VITALS: Ht 177.8 cm; Wt 72.6 kg
[2021-02-03 06:33] LABS: BE 2.4 mmol/L (-2 to +3); PCO2 33.3 mmHg (35.0-45.0); PO2 85.6 mmHg (75.0-100.0); pH 7.496 (7.340-7.450)
[2021-02-03 06:47] LABS: ABSOLUTE BASOPHILS 0.1 thou/uL (0.0-0.2); ABSOLUTE EOSINOPHILS 0.1 thou/uL (0.0-0.7); ABSOLUTE LYMPHOCYTES 0.8 thou/uL (0.8-5.3); ABSOLUTE MONOCYTES 0.4 thou/uL (0.0-1.2); ABSOLUTE NEUTROPHILS 8.3 thou/uL (1.6-8.1); BASOPHILS 1.4 %; EOSINOPHILS 0.5 %; HEMATOCRIT 41.4 % (37.0-47.0); HEMOGLOBIN 13.9 gm/dL (12.0-15.0); LYMPHOCYTES 8.5 %; MCH 34.4 pg (26.0-34.0); MCHC 33.5 g/dL (28.0-37.0); MCV 102.5 fL (80.0-100.0); MONOCYTES 3.8 %; MPV 8.8 fl. (7.2-11.1); NUCLEATED RBCS 0 /100WBC; PLATELET COUNT* 251 thou/uL (150-400); POLYS 85.8 %; RBC 4.04 mil/uL (4.20-5.00); RDW-CV 17.6 % (10.5-14.5); WBC 9.7 thou/uL (4.0-11.0)
[2021-02-03 06:57] LABS: ANION GAP 11 mmol/L (7-16); BUN 43 mg/dL (7-18); CALCIUM 7.7 mg/dL (8.5-10.1); CHLORIDE 89 mmol/L (98-107); CO2 31 mmol/L (21-32); CREATININE 6.6 mg/dL (0.6-1.3); GLUCOSE 484 mg/dL (70-99); POTASSIUM 4.3 mmol/L (3.5-5.1); SODIUM 131 mmol/L (136-145)
[2021-02-03 07:01] LABS: ALBUMIN 3.4 g/dL (3.4-5.0); ALKALINE PHOSPHATASE 94 U/L (46-116); MAGNESIUM 2.2 mg/dL (1.8-2.4); PHOSPHORUS* 6.2 mg/dL (2.5-4.9); SGOT 37 U/L (15-37); SGPT 52 U/L (30-65); TOTAL BILIRUBIN 0.4 mg/dL (<0.1-1.0); TOTAL PROTEIN 7.6 g/dL (6.4-8.2)
[2021-02-03 10:02] VITALS: BP 152/86
--- NOTE | 2021-02-03 14:40 | EKG ---
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1970 Requested By: Imelda Muniz Order Number: [id number] MD: Riley Cullen Measurements Intervals [place] Rate: 90 P: 62 [place]: 161 QRS: 2 QRSD: 96 T: 79 QT: 401 QTc: 491 Interpretive Statements Sinus rhythm Left ventricular hypertrophy ST depr, consider ischemia, inferior leads Borderline prolonged QT interval Compared to ECG 01/09/2021 14:13:08 Left ventricular hypertrophy now present Possible ischemia now present Myocardial infarct finding no longer present Electronically Signed On 02-03-2021 14:40:03 CDT by Riley Cullen [email or web address] <ELECTRONICALLY SIGNED> By: Riley Cullen MD, [facility] 02/03/21 1440 0 0 Riley Cullen MD, [facility] /EPI
== END 2021-02-03 10:04 | disposition left against medical advice (07) ==
LOC: M.ERS 06:01
PROVIDERS: Personal Emergency Response Attendant
DX: E10.65 Type 1 diabetes mellitus with hyperglycemia (principal); R11.2 Nausea with vomiting, unspecified; E03.9 Hypothyroidism, unspecified; E10.22 Type 1 diabetes mellitus with diabetic chronic kidney disease; N18.5 Chronic kidney disease, stage 5; Z90.710 Acquired absence of both cervix and uterus; Z85.41 Personal history of malignant neoplasm of cervix uteri

== ENCOUNTER 2021-04-06 12:42 | Inpatient (IN) | payer MEDICARE, MEDICAID ==
[~2021-04-06] VITALS: Ht 177.8 cm; Wt 63.5 kg
--- NOTE | ~2021-04-06 | CON ---
[address] [address] CONSULTATION Name: MARYAN FERNANDO Room: [place] [address] ADM IN M.R.#: [id number] Admission: 04/06/21 Attend Phys: Fabien Moulton Discharge: Date of : 72 Report #: [id number] THIS REPORT FOR: cc: Miguel Luna Adam J DO Arakelov, Alexandr V. MD ~ DATE OF CONSULTATION: 04/07/2021 REQUESTING PHYSICIAN: Jt Hinds DO REASON FOR CONSULTATION: Assist in providing dialysis. HISTORY OF PRESENT ILLNESS: The patient is a 51-year-old female with medical history significant for end-stage renal disease, diabetes mellitus type 1, coronary artery disease, hypertension, presents with complaints of not feeling well, was found to be in diabetic ketoacidosis. She missed her dialysis treatment last week. So, she was admitted to the hospital and today we are dialyzing her. PHYSICAL EXAMINATION: GENERAL: Examined on dialysis, feels better. VITAL SIGNS: Reviewed. NECK: Supple. Dialysis via tunneled dialysis catheter that is in the right internal jugular vein. HANDS: She has left brachiocephalic fistula, which was placed just last week, so it is very new. ABDOMEN: Soft. LUNGS: Clear. EXTREMITIES: Legs with trace edema. LABORATORY DATA: Lab report revealed sodium of 133, potassium of 5.5, BUN 67, creatinine 8.2. Hemoglobin is 8.8, white count 8200. IMPRESSION: 1. End-stage renal disease. 2. Diabetes mellitus type 1 with diabetic ketoacidosis. 3. Coronary artery disease. 4. Anemia. 5. [place] [address] CONSULTATION Name: MARYAN FERNANDO Room: [address] IN .R.#: [id number] Admission: 04/06/21 Attend Phys: Fabien Moulton Discharge: Date of : 72 Report #: [id number] PLAN: Continue dialysis. Next dialysis will be on Wednesday. The rest of the problem will be addressed by the primary team. By: [id number] Orosco MD /rene
[2021-04-06 12:44] VITALS: BP 177/91
[2021-04-06] MEDS ORDERED: PLAVIX 75 MG TA75 MG PO (12:49)
[2021-04-06 13:16] LABS: HEMATOCRIT 27.9 % (37.0-47.0); HEMOGLOBIN 8.8 gm/dL (12.0-15.0); MCHC 31.6 g/dL (28.0-37.0); MCV 104.4 fL (80.0-100.0); MPV 8.7 fl. (7.2-11.1); NUCLEATED RBCS 0 /100WBC; PLATELET COUNT* 238 thou/uL (150-400); RBC 2.67 mil/uL (4.20-5.00); RDW-CV 15.2 % (10.5-14.5); WBC 9.5 thou/uL (4.0-11.0)
[2021-04-06 13:17] LABS: BE -10.3 mmol/L (-2 to +3); PCO2 VENOUS 26.4 mmHg (41.0-51.0); PO2 VENOUS 108.1 mmHg (35.0-45.0)
[2021-04-06 13:29] LABS: CALCIUM 8.5 mg/dL (8.5-10.1); CREATININE 8.1 mg/dL (0.6-1.3); POTASSIUM 5.9 mmol/L (3.5-5.1)
[2021-04-06 13:31] LABS: ALBUMIN 3.6 g/dL (3.4-5.0); TOTAL BILIRUBIN 0.6 mg/dL (<0.1-1.0); TOTAL PROTEIN 6.7 g/dL (6.4-8.2)
[2021-04-06 14:06] LABS: ABSOLUTE LYMPHOCYTES 0.5 thou/uL (0.8-5.3); ABSOLUTE MONOCYTES 0.2 thou/uL (0.0-1.2); ABSOLUTE NEUTROPHILS 8.8 thou/uL (1.6-8.1); PLATELET ESTIMATE ADEQUATE
[2021-04-06 15:07] LABS: ABSOLUTE LYMPHOCYTES 0.8 thou/uL (0.8-5.3); ABSOLUTE MONOCYTES 0.5 thou/uL (0.0-1.2); ABSOLUTE NEUTROPHILS 6.8 thou/uL (1.6-8.1); BASOPHILS 0.5 %; EOSINOPHILS 0.1 %; HEMATOCRIT 27.7 % (37.0-47.0); HEMOGLOBIN 8.8 gm/dL (12.0-15.0); LYMPHOCYTES 10.2 %; MCH 33.3 pg (26.0-34.0); MCHC 31.8 g/dL (28.0-37.0); MCV 104.5 fL (80.0-100.0); MONOCYTES 6.6 %; MPV 8.3 fl. (7.2-11.1); NUCLEATED RBCS 0 /100WBC; PLATELET COUNT* 229 thou/uL (150-400); POLYS 82.6 %; RBC 2.65 mil/uL (4.20-5.00); WBC 8.2 thou/uL (4.0-11.0)
[2021-04-06 15:18] LABS: CALCIUM 8.2 mg/dL (8.5-10.1); POTASSIUM 4.7 mmol/L (3.5-5.1)
[2021-04-06 15:28] LABS: ALBUMIN 3.7 g/dL (3.4-5.0); CK-MB MASS 2.4 ng/mL (<0.5-3.6); PHOSPHORUS* 6.4 mg/dL (2.5-4.9); TOTAL BILIRUBIN 0.5 mg/dL (<0.1-1.0); TOTAL PROTEIN 7.3 g/dL (6.4-8.2)
[2021-04-06 16:42] LABS: CALCIUM 7.9 mg/dL (8.5-10.1); CREATININE 7.9 mg/dL (0.6-1.3); POTASSIUM 4.6 mmol/L (3.5-5.1)
[2021-04-06 18:28] VITALS: BP 115/64
[2021-04-06 20:00] VITALS: BP 121/66
[2021-04-06 20:49] LABS: CREATININE 8.2 mg/dL (0.6-1.3); POTASSIUM 4.3 mmol/L (3.5-5.1)
[2021-04-06 20:52] LABS: ALBUMIN 2.9 g/dL (3.4-5.0); MAGNESIUM 1.9 mg/dL (1.8-2.4); PHOSPHORUS* 5.3 mg/dL (2.5-4.9)
[2021-04-06 21:31] LABS: ALBUMIN 2.9 g/dL (3.4-5.0); CREATININE 8.2 mg/dL (0.6-1.3); POTASSIUM 4.3 mmol/L (3.5-5.1); TOTAL BILIRUBIN 0.3 mg/dL (<0.1-1.0); TOTAL PROTEIN 5.9 g/dL (6.4-8.2)
--- NOTE | 2021-04-06 21:34 | NUR ---
SPOKE WITH DR CABELLO REGARDING DKA PROTOCAL; ORDERS RECEIVED TO OMIT THE ELECTROLYTE REPLACEMENT; PT IS A DIALYSIS PATIENT AND MISSED DIALYSIS ON WEDNESDAY
[2021-04-07] VITALS (7 sets, daily range): BP systolic 106–178; BP diastolic 64–81
[2021-04-07 01:22] LABS: CALCIUM 7.8 mg/dL (8.5-10.1); CREATININE 8.1 mg/dL (0.6-1.3); POTASSIUM 4.4 mmol/L (3.5-5.1)
[2021-04-07 01:25] LABS: ALBUMIN 2.8 g/dL (3.4-5.0); MAGNESIUM 1.9 mg/dL (1.8-2.4); PHOSPHORUS* 5.3 mg/dL (2.5-4.9)
[2021-04-07 01:59] LABS: URINE BILIRUBIN NEGATIVE (Negative); URINE BLOOD 1+ (Negative); URINE CLARITY CLEAR; URINE COLOR YELLOW; URINE GLUCOSE-RANDOM 3+ (Negative); URINE KETONES 1+ (Negative); URINE LEUKOCYTES-REFLEX NEGATIVE (Negative); URINE NITRITE-REFLEX NEGATIVE (Negative); URINE PROTEIN 3+ (Negative); URINE UROBILINOGEN 0.2 E.U./dl (0.2-1.0)
--- NOTE | 2021-04-07 02:12 | NUR ---
SPOKE WITH DR REGARDING PTS CURRENT PROTOCAL; PT TO REMAIN ON DKA PROTOCAL; KETONES PRESENT IN URINE; BS-85; IVF HELD AND INSULIN GTT STOPPED; ORDERS FOR PT TO EAT AND RECEIVE LONG ACTING INSULIN;
[2021-04-07 02:29] LABS: HYALINE CASTS 0-3 Few /LPF (None Seen); SQUAMOUS NONE SEEN /LPF (0-3)
[2021-04-07 02:30] LABS: BACTERIA-REFLEX 1-9 Few /HPF (None Seen); CRYSTALS None Seen /LPF (None Seen); URINE RBC 0-2 Rare /HPF (0-2); URINE WBC-REFLEX None Seen /HPF (0-5)
[2021-04-07 05:24] LABS: ALBUMIN 2.9 g/dL (3.4-5.0); CALCIUM 7.6 mg/dL (8.5-10.1); CREATININE 8.2 mg/dL (0.6-1.3); TOTAL BILIRUBIN 0.4 mg/dL (<0.1-1.0); TOTAL PROTEIN 5.9 g/dL (6.4-8.2)
[2021-04-07 05:44] LABS: POTASSIUM 5.5 mmol/L (3.5-5.1)
--- NOTE | 2021-04-07 10:11 | EKG ---
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1970 Requested By: Stuart Bojorquez Order Number: [id number] MD: De Iniguez Measurements Intervals [place] Rate: 75 P: 44 MA: 169 QRS: 23 QRSD: 96 T: 47 QT: 423 QTc: 473 Interpretive Statements Sinus rhythm Probable left ventricular hypertrophy ST elev, probable normal early repol pattern Compared to ECG 02/03/2021 06:21:42 no change Electronically Signed On 04-07-2021 10:11:42 CDT by De Iniguez [email or web address] <ELECTRONICALLY SIGNED> By: De Iniguez MD, [facility] 04/07/21 1011 1307 1307 De Iniguez MD, [facility] /EPI
--- NOTE | 2021-04-07 16:48 | NUR ---
DIALYSIS WAS COMPLETED THIS MORNING AND 1.5 LITERS WAS TAKEN OFF.
--- NOTE | 2021-04-07 21:30 | NUR ---
PT TO ROOM FROM ER. SL LOCK TO RT AC OUT, RESTARTED JUST ABOVE PREVIOUS SITE, PAINFUL DUE TO SCAR TISSURE. PT VERY ANXIOUS AND DID NOT GET ALONG WITH ASSIGNED NURSE SO I ASSUMED CARE OF PT. UPSET BECAUSE HOME MEDS HAD NOT BEEN STARTED. WANTING TO GO HOME EVEN IF IT IS AMA. MYSELF AND NURSING STOCK WORKER HAD LONG DISCUSSION WITH PT. PT CALMER BUT STILL VERY TEARFUL. TELEMETRY APPLIED SHOWING SR. WILL CONT TO MONITOR AND ASSIST NEEDED.
[2021-04-08] VITALS: BP 165/83
[2021-04-08 04:00] VITALS: BP 144/83
[2021-04-08 04:54] LABS: ABSOLUTE BASOPHILS 0.1 thou/uL (0.0-0.2); ABSOLUTE EOSINOPHILS 0.1 thou/uL (0.0-0.7); ABSOLUTE LYMPHOCYTES 1.1 thou/uL (0.8-5.3); ABSOLUTE MONOCYTES 0.3 thou/uL (0.0-1.2); ABSOLUTE NEUTROPHILS 4.2 thou/uL (1.6-8.1); BASOPHILS 1.2 %; EOSINOPHILS 1.7 %; HEMATOCRIT 29.2 % (37.0-47.0); HEMOGLOBIN 9.7 gm/dL (12.0-15.0); LYMPHOCYTES 19.4 %; MCH 32.9 pg (26.0-34.0); MCHC 33.2 g/dL (28.0-37.0); MONOCYTES 5.5 %; MPV 8.5 fl. (7.2-11.1); NUCLEATED RBCS 0 /100WBC; PLATELET COUNT* 226 thou/uL (150-400); POLYS 72.2 %; RBC 2.95 mil/uL (4.20-5.00); RDW-CV 14.4 % (10.5-14.5); WBC 5.9 thou/uL (4.0-11.0)
--- NOTE | 2021-04-08 05:10 | NUR ---
DR ORDERED HOME MEDS AND GAVE THE MEDS TO ASSIST WITH CALMING HER DOWN AND ASSISTING WITH REST TONIGHT. ABLE TO SLEEP AFTER THIS. NO CHANGE IN ASSESSMENT.
[2021-04-08 06:26] LABS: MCV 99.1 fL (80.0-100.0)
[2021-04-08 06:29] LABS: ALBUMIN 2.7 g/dL (3.4-5.0); ALKALINE PHOSPHATASE 89 U/L (46-116); ANION GAP 10 mmol/L (7-16); BUN 31 mg/dL (7-18); CALCIUM 7.6 mg/dL (8.5-10.1); CHLORIDE 94 mmol/L (98-107); CO2 27 mmol/L (21-32); CREATININE 4.8 mg/dL (0.6-1.3); GLUCOSE 210 mg/dL (70-99); PHOSPHORUS* 3.4 mg/dL (2.5-4.9); POTASSIUM 3.7 mmol/L (3.5-5.1); SGOT 17 U/L (15-37); SGPT 8 U/L (30-65); SODIUM 131 mmol/L (136-145); TOTAL BILIRUBIN 0.3 mg/dL (<0.1-1.0); TOTAL PROTEIN 5.9 g/dL (6.4-8.2)
[2021-04-08 08:00] VITALS: BP 180/107
[2021-04-08 10:54] VITALS: BP 1180/10
[2021-04-08] MEDS ORDERED: ERYTHROMYCIN250 M1 PO (11:00)
--- NOTE | 2021-04-08 11:19 | NUR ---
PT DISCHARGED HOME WITH ALL BELONGINGS ACCOMPANIED BY A FRIEND. PT HAS GOOD UNDERSTANDING OF DISCHARGE INSTRUCTIONS. PT DENIES PAIN ON DISCHARGE. PT DISCHARGED HOME.
== END 2021-04-08 11:10 | disposition home or self-care (01) | DRG 637 ==
LOC: M.ERS 12:42 → M.TBA-ER 14:27 → M.2W 04-07 20:57
PROVIDERS: Emergency Medicine Emergency Medical Services; ADMIT Internal Medicine; ATTEND Internal Medicine
DX: E10.10 Type 1 diabetes mellitus with ketoacidosis without coma (principal); N18.6 End stage renal disease; E87.1 Hypo-osmolality and hyponatremia; I12.0 Hypertensive chronic kidney disease with stage 5 chronic kidney disease or end stage renal disease; Z20.822 Contact with and (suspected) exposure to COVID-19; E03.9 Hypothyroidism, unspecified; F12.90 Cannabis use, unspecified, uncomplicated; I25.10 Atherosclerotic heart disease of native coronary artery without angina pectoris; F17.210 Nicotine dependence, cigarettes, uncomplicated; D64.9 Anemia, unspecified; E87.5 Hyperkalemia; E05.90 Thyrotoxicosis, unspecified without thyrotoxic crisis or storm; Z85.41 Personal history of malignant neoplasm of cervix uteri; Z90.710 Acquired absence of both cervix and uterus; Z90.6 Acquired absence of other parts of urinary tract; I25.2 Old myocardial infarction; Z95.5 Presence of coronary angioplasty implant and graft

== ENCOUNTER 2021-05-09 09:44 | Inpatient (IN) | payer MEDICARE, MEDICAID ==
[~2021-05-09] VITALS: Ht 177.8 cm; Wt 66.4 kg
[~2021-05-09 09:44] MED LIST changes: +ERYTHROMYCIN250 M1 PO; +PLAVIX 75 MG TA75 MG PO
[2021-05-09 09:59] VITALS: BP 220/132
--- NOTE | 2021-05-09 10:08 | EKG ---
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: : 1970 Requested By: Regi Edmond Order Number: [id number] MD: De Iniguez Measurements Intervals [place] Rate: 85 P: 37 VT: 166 QRS: -15 QRSD: 92 T: 76 QT: 381 QTc: 453 Interpretive Statements Sinus rhythm Probable left atrial enlargement Left ventricular hypertrophy Anterior Q waves, possibly due to LVH Baseline wander in lead(s) V1,V3 Compared to ECG 04/06/2021 13:07:37 Q waves now present ST (T wave) deviation still present Electronically Signed On 05-09-2021 10:07:52 CDT by De Iniguez [email or web address] <ELECTRONICALLY SIGNED> By: De Iniguez MD, FACC 05/09/21 1007 0950 0950 De Iniguez MD, FACC /EPI
[2021-05-09 10:20] LABS: ABSOLUTE BASOPHILS 0.1 thou/uL (0.0-0.2); ABSOLUTE EOSINOPHILS 0.1 thou/uL (0.0-0.7); ABSOLUTE LYMPHOCYTES 0.7 thou/uL (0.8-5.3); ABSOLUTE MONOCYTES 0.3 thou/uL (0.0-1.2); ABSOLUTE NEUTROPHILS 5.3 thou/uL (1.6-8.1); BASOPHILS 1.2 %; EOSINOPHILS 1.5 %; HEMATOCRIT 33.3 % (37.0-47.0); HEMOGLOBIN 10.7 gm/dL (12.0-15.0); LYMPHOCYTES 11.3 %; MCH 32.3 pg (26.0-34.0); MCHC 32.2 g/dL (28.0-37.0); MCV 100.3 fL (80.0-100.0); MONOCYTES 4.4 %; MPV 8.3 fl. (7.2-11.1); NUCLEATED RBCS 0 /100WBC; PLATELET COUNT* 248 thou/uL (150-400); POLYS 81.6 %; RBC 3.32 mil/uL (4.20-5.00); RDW-CV 15.6 % (10.5-14.5); WBC 6.5 thou/uL (4.0-11.0)
[2021-05-09 10:30] LABS: CALCIUM 9.2 mg/dL (8.5-10.1); CREATININE 4.8 mg/dL (0.6-1.3); POTASSIUM 3.7 mmol/L (3.5-5.1)
[2021-05-09 10:34] LABS: ALBUMIN 3.7 g/dL (3.4-5.0); TOTAL BILIRUBIN 0.5 mg/dL (<0.1-1.0); TOTAL PROTEIN 7.5 g/dL (6.4-8.2)
[2021-05-09 16:30] VITALS: BP 210/113
--- NOTE | 2021-05-09 18:52 | 2DMMODE ---
[place] [address] 2 D/M-MODE ECHOCARDIOGRAM Name: MARYAN FERNANDO Room: [place] [address] ADM IN Nanda#: [id number] Admission: 05/09/21 Attend Phys: Mary Anne Lowry, Discharge: Date of : 72 Date of Service: 05/09/21 185 Report #: [id number] THIS REPORT FOR: cc: Miguel Luna Adam J DO Blick,De Armstrong MD [facility] ~ APPROVED REPORT Study performed: 05/09/2021 16:58:07 EXAM: Comprehensive 2D, Doppler, and color-flow Echocardiogram Patient Location: In-Patient Room #: er Status: routine BSA: 1.72 HR: 94 bpm BP: 202/122 mmHg Rhythm: NSR Other Information Study Quality: Excellent Indications Congestive Heart Failure 2D Dimensions IVSd: 14.00 (7-11mm) LVOT Diam: 21.07 (18-24mm) LVDd: 57.57 mm PWd: 12.34 (7-11mm) Ascending Ao: 30.83 (22-36mm) LVDs: 51.19 (25-40mm) Aortic Root: 33.63 mm Volumes Left Atrial Volume (Systole) LA ESV Index: 68.20 mL/m2 Aortic Valve AoV Peak Kirt.: 1.57 m/s AO Peak Gr.: 9.89 mmHg LVOT Max P.37 mmHg AO Mean Gr.: 5.70 mmHg LVOT Mean P.49 mmHg LVOT Max V: 1.16 m/s AO V2 VTI: 27.46 cm LVOT Mean V: 0.71 m/s PATRIC (VTI): 2.61 cm2 LVOT V1 VTI: 20.55 [place] [address] 2 D/M-MODE ECHOCARDIOGRAM Name: FLORES FERNANDORINA Room: [address] IN [facility]#: [id number] Admission: 05/09/21 Attend Phys: Mary Anne Lowry, Discharge: Date of : 72 Date of Service: 05/09/21 1852 Report #: [id number] Mitral Valve E/A Ratio: 0.80 MV Decel. Time: 104.06 ms MV E Max Kirt.: 1.23 m/s MV PHT: 30.18 ms MVA (PHT): 7.29 cm2 TDI E/Lateral E': 15.38 Lateral E' Kirt.: 0.08 m/s Pulmonary Valve PV Peak Kirt.: 1.02 m/s PV Peak Gr.: 4.15 mmHg Tricuspid Valve RAP Estimate: 15.00 mmHg TR Peak Gr.: 45.44 mmHg RVSP: 60.00 mmHg PA Pressure: 60.00 mmHg Left Ventricle Left ventricle is mildly dilated. There is global hypokinesis of the left ventricle. Mild concentric left ventricular hypertrophy. Left ventricular systolic function is severely decreased. LVEF is 20-25%. Grade I - abnormal relaxation pattern. Right Ventricle The right ventricle is normal size. The right ventricular systolic function is normal. Atria Left atrium is severely dilated. Right atrium is moderately dilated. Aortic Valve The aortic valve is normal in structure. No aortic regurgitation is present. There is no aortic valvular stenosis. Mitral Valve The mitral valve is normal in structure. Mild mitral regurgitation. No evidence of mitral valve stenosis. Tricuspid Valve The tricuspid valve is normal in structure. Moderate tricuspid regurgitation. estimated pa pressure 60 mm [place] [address] 2 D/M-MODE ECHOCARDIOGRAM Name: MARYAN FERNANDO Room: [address] IN [facility]#: [id number] Admission: 05/09/21 Attend Phys: Mary Anne Lowry, Discharge: Date of : 72 Date of Service: 05/09/21 1852 Report #: [id number] The pulmonary valve is normal in structure. Mild pulmonic regurgitation. Great Vessels The aortic root is normal in size. IVC is dilated and collapses <50% with inspiration. Pericardium Trace pericardial effusion. Large left pleural effusion. <Conclusion> Left ventricle is mildly dilated. LVEF is 20-25%. Mild concentric left ventricular hypertrophy. Mild mitral regurgitation. Moderate tricuspid regurgitation. estimated pa pressure 60 mm Hg <ELECTRONICALLY SIGNED> By: De Iniguez MD, FACC 05/09/211851 51 51 De Iniguez MD, FACC /INF
[2021-05-09 21:50] VITALS: BP 213/118
[2021-05-09 22:00] VITALS: BP 150/68
[2021-05-09 22:30] VITALS: BP 210/113
[2021-05-09] MEDS ORDERED: SYNTHROID25 MC1 PO (23:18)
[2021-05-09 23:30] VITALS: BP 175/91
[2021-05-09 23:46] LABS: INFLUENZA A ANTIGEN Negative (Negative); INFLUENZA B ANTIGEN Negative (Negative)
[2021-05-10 00:45] VITALS: BP 135/66
[2021-05-10 04:27] VITALS: BP 144/84
[2021-05-10 08:00] VITALS: BP 96/49
[2021-05-10 13:30] LABS: CALCIUM 8.3 mg/dL (8.5-10.1); POTASSIUM 3.2 mmol/L (3.5-5.1)
[2021-05-10 13:33] LABS: CREATININE 2.8 mg/dL (0.6-1.3)
[2021-05-10 20:00] VITALS: BP 159/87
[2021-05-11] VITALS: BP 148/69
[2021-05-11 04:00] VITALS: BP 160/82
[2021-05-11 06:25] LABS: HEMATOCRIT 27.1 % (37.0-47.0); HEMOGLOBIN 8.8 gm/dL (12.0-15.0); MCH 32.4 pg (26.0-34.0); MCHC 32.6 g/dL (28.0-37.0); MCV 99.7 fL (80.0-100.0); MPV 8.5 fl. (7.2-11.1); RBC 2.72 mil/uL (4.20-5.00); RDW-CV 15.4 % (10.5-14.5); WBC 4.6 thou/uL (4.0-11.0)
[2021-05-11 06:35] LABS: ALBUMIN 2.9 g/dL (3.4-5.0); CALCIUM 8.4 mg/dL (8.5-10.1); MAGNESIUM 2.1 mg/dL (1.8-2.4); TOTAL BILIRUBIN 0.3 mg/dL (<0.1-1.0); TOTAL PROTEIN 6.4 g/dL (6.4-8.2)
[2021-05-11 06:40] LABS: POTASSIUM 4.4 mmol/L (3.5-5.1)
[2021-05-11 06:41] LABS: CREATININE 4.2 mg/dL (0.6-1.3)
[2021-05-11 09:00] VITALS: BP 141/77
--- NOTE | 2021-05-11 13:23 | CON ---
[address] [address] CONSULTATION Name: MARYAN FERNANDO Room: [address] IN M.R.#: [id number] Admission: 05/09/21 Attend Phys: Mary Anne Lowry MD Discharge: Date of : 72 Report #: [id number] THIS REPORT FOR: cc: Miguel Luna Adam J DO Khan, Abid R. MD ~ DATE OF CONSULTATION: 05/10/2021 NEPHROLOGY CONSULT CONSULTING PHYSICIAN: Mary nAne Lowry MD REASON FOR CONSULTATION: End-stage kidney disease. HISTORY OF PRESENT ILLNESS: A 51-year-old female who comes in with shortness of breath. She was due for dialysis yesterday, did not have her dialysis yesterday. When the dialysis nurse came to dialyze her, she refused dialysis. She is seen on dialysis today, but was reluctant at first to have dialysis done today. She appears to be comfortable and tolerating her dialysis treatment well. She has been diagnosed with pneumonia and is being treated with antibiotics for that. She otherwise has no complaints, appears to be comfortable. REVIEW OF SYSTEMS: Constitutional, psych, heme, eyes, ENT, respiratory, cardiac, GI, , endocrine, all negative except as documented above. PAST MEDICAL HISTORY: End-stage kidney disease, on hemodialysis; hypothyroidism, diabetes type 1. FAMILY HISTORY: Not pertinent in this 51-year-old female. SOCIAL HISTORY: Positive for tobacco. CURRENT MEDICATIONS: Reviewed. PHYSICAL EXAMINATION: VITAL SIGNS: Blood pressure is 96/49, pulse 64, respirations 16, temperature 36.6. GENERAL: No acute distress. EYES: Open. EARS: Externally normal. NECK: Supple. CARDIOVASCULAR: Regular rate. ABDOMEN: Soft. LUNGS: Diminished. [address] [address] CONSULTATION Name: MARYAN FERNANDO Room: [address]#: [id number] Admission: 05/09/21 Attend Phys: Mary Anne Lowry MD Discharge: Date of : 72 Report #: [id number] MUSCULOSKELETAL: Nontender. PSYCHIATRIC: Awake, alert. LABORATORY DATA: White cell count 6.5, hemoglobin 10.7, platelets 248. Sodium 137, potassium 3.2, chloride 98, bicarbonate 33, BUN 24, creatinine 2.8, glucose 204, calcium 8.3. ASSESSMENT: 1. End-stage kidney disease, on hemodialysis Wednesday, Wednesday and Wednesday at [facility]. 2. Hypoalbuminemia. 3. Coronary artery disease. 4. Diabetes mellitus type 1. 5. History of cervical cancer. 6. Hypothyroidism. PLAN: The patient is seen on dialysis, tolerating treatment well. The patient has been started on antibiotics and did have some evidence of pulmonary congestion on chest x-ray. We are ultrafiltrating as tolerated. She appears to be tolerating dialysis well. We will continue her on a Wednesday, Wednesday, Wednesday schedule while here in the hospital. We will follow for dialysis needs. Please call with any questions in the interim. <ELECTRONICALLY SIGNED> By: Nadja Carlton MD 05/11/21 1323 1236 2035Abianupama Carlton MD /nt
[2021-05-11 16:00] VITALS: BP 148/91
[2021-05-11 20:29] VITALS: BP 183/97
[2021-05-12] VITALS: BP 161/85
[2021-05-12 04:00] VITALS: BP 161/95
[2021-05-12 04:17] LABS: HEMATOCRIT 28.1 % (37.0-47.0); HEMOGLOBIN 9.1 gm/dL (12.0-15.0); MCH 32.8 pg (26.0-34.0); MCHC 32.5 g/dL (28.0-37.0); MPV 9.1 fl. (7.2-11.1); RBC 2.79 mil/uL (4.20-5.00); RDW-CV 15.3 % (10.5-14.5); WBC 4.2 thou/uL (4.0-11.0)
[2021-05-12 04:28] LABS: APTT 26.8 Seconds (25.0-31.3)
[2021-05-12 04:34] LABS: INR 1.1; PROTIME 11.5 Seconds (9.20-11.50)
[2021-05-12 05:05] LABS: CALCIUM 8.5 mg/dL (8.5-10.1); POTASSIUM 4.7 mmol/L (3.5-5.1); TOTAL BILIRUBIN 0.3 mg/dL (<0.1-1.0); TOTAL PROTEIN 6.5 g/dL (6.4-8.2)
[2021-05-12 05:11] LABS: CREATININE 5.5 mg/dL (0.6-1.3)
[2021-05-12 16:13] LABS: BF RBC 1773 /mm3; TOTAL CELL COUNT 409 /mm3
[2021-05-12 16:15] LABS: CLARITY SLIGHTLY CLOUDY; SOURCE LEFT THORACENTESIS
[2021-05-12 16:21] LABS: TOTAL VOLUME 860 ml
[2021-05-12 16:50] LABS: BF LYMPHOCYTES 57 %; BF MONOCYTES 13 %; BF POLYS 30 %; BF TISSUE 9 /100 WBC
[2021-05-12 18:55] VITALS: BP 130/76
[2021-05-12 20:00] VITALS: BP 159/81
[2021-05-13] VITALS (7 sets, daily range): BP systolic 120–172; BP diastolic 69–83
[2021-05-13 04:07] LABS: HEMATOCRIT 28.2 % (37.0-47.0); HEMOGLOBIN 8.7 gm/dL (12.0-15.0); MCH 31.9 pg (26.0-34.0); MCHC 30.8 g/dL (28.0-37.0); MCV 103.3 fL (80.0-100.0); MPV 9.3 fl. (7.2-11.1); RBC 2.73 mil/uL (4.20-5.00); RDW-CV 15.6 % (10.5-14.5); WBC 6.6 thou/uL (4.0-11.0)
[2021-05-13 04:33] LABS: ALBUMIN 3.1 g/dL (3.4-5.0); CALCIUM 8.3 mg/dL (8.5-10.1); CREATININE 4.3 mg/dL (0.6-1.3); MAGNESIUM 1.9 mg/dL (1.8-2.4); POTASSIUM 5.5 mmol/L (3.5-5.1); TOTAL BILIRUBIN 0.5 mg/dL (<0.1-1.0); TOTAL PROTEIN 6.5 g/dL (6.4-8.2)
[2021-05-13] MEDS ORDERED: COREG6.25 MG PO (09:50)
[2021-05-13] MEDS ORDERED: CEFDINIR300 MG PO (09:50)
[2021-05-13] MEDS ORDERED: HYDRALAZINE 2525 MG PO (09:50)
[2021-05-13 16:07] LABS: BODY FLUID PROTEIN 1.8 g/dL (())
[2021-05-14 00:34] VITALS: BP 114/61
[2021-05-14 04:26] VITALS: BP 130/71
[2021-05-14 11:25] VITALS: BP 161/74
[2021-05-14 16:30] VITALS: BP 130/72
[2021-05-14 19:30] VITALS: BP 176/66
[2021-05-15 00:29] VITALS: BP 168/73
[2021-05-15 04:33] VITALS: BP 176/93
[2021-05-15 08:30] VITALS: BP 154/84
[2021-05-15 09:34] LABS: SOURCE THORACENTESIS
[2021-05-15 12:14] VITALS: BP 130/66
[2021-05-15 12:20] VITALS: BP 120/69
[2021-05-15] MEDS ORDERED: LANTUS SUBQ (13:50)
== END 2021-05-15 16:23 | disposition home health service (06) | DRG 177 ==
LOC: M.ERS 09:44 → M.TBA-ER 12:19 → M.ORTHSURG 12:19
PROVIDERS: Physician Assistant; Registered Nurse; ADMIT Internal Medicine; ATTEND Internal Medicine
PROC: 0W9B3ZZ Drainage of Left Pleural Cavity, Percutaneous Approach (ICD-10-PCS; principal; 2021-05-12)
DX: J15.6 Pneumonia due to other Gram-negative bacteria (principal); N18.6 End stage renal disease; J96.01 Acute respiratory failure with hypoxia; I50.23 Acute on chronic systolic (congestive) heart failure; J91.8 Pleural effusion in other conditions classified elsewhere; I42.9 Cardiomyopathy, unspecified; I13.2 Hypertensive heart and chronic kidney disease with heart failure and with stage 5 chronic kidney disease, or end stage renal disease; E03.9 Hypothyroidism, unspecified; E10.22 Type 1 diabetes mellitus with diabetic chronic kidney disease; E88.09 Other disorders of plasma-protein metabolism, not elsewhere classified; I25.10 Atherosclerotic heart disease of native coronary artery without angina pectoris; F17.210 Nicotine dependence, cigarettes, uncomplicated; D64.9 Anemia, unspecified; Z20.822 Contact with and (suspected) exposure to COVID-19; Z85.41 Personal history of malignant neoplasm of cervix uteri; Z90.710 Acquired absence of both cervix and uterus; Z90.6 Acquired absence of other parts of urinary tract

== ENCOUNTER 2021-06-13 10:39 | Emergency (ER) | payer MEDICARE, MEDICAID ==
[~2021-06-13] VITALS: Ht 177.8 cm; Wt 65.3 kg
[~2021-06-13 10:39] MED LIST changes: +CEFDINIR300 MG PO; +COREG6.25 MG PO; +COZAAR 50 MG TA50 M1 PO; +HYDRALAZINE 2525 MG PO; +HYDROCHLOROTHIA25 M1 PO; +NORVASC5 MG PO; +SYNTHROID25 MC1 PO; +TRANSDERM-SCOP1 EACH TRANSDERM
[2021-06-13 10:57] LABS: ABSOLUTE BASOPHILS 0.1 thou/uL (0.0-0.2); ABSOLUTE EOSINOPHILS 0.1 thou/uL (0.0-0.7); ABSOLUTE LYMPHOCYTES 0.8 thou/uL (0.8-5.3); ABSOLUTE MONOCYTES 0.4 thou/uL (0.0-1.2); ABSOLUTE NEUTROPHILS 6.1 thou/uL (1.6-8.1); BASOPHILS 1.1 %; EOSINOPHILS 0.8 %; HEMATOCRIT 37.8 % (37.0-47.0); HEMOGLOBIN 12.3 gm/dL (12.0-15.0); LYMPHOCYTES 10.8 %; MCH 31.9 pg (26.0-34.0); MCHC 32.6 g/dL (28.0-37.0); MCV 97.9 fL (80.0-100.0); MONOCYTES 5.1 %; MPV 8.6 fl. (7.2-11.1); NUCLEATED RBCS 0 /100WBC; PLATELET COUNT* 256 thou/uL (150-400); POLYS 82.2 %; RBC 3.87 mil/uL (4.20-5.00); RDW-CV 15.6 % (10.5-14.5); WBC 7.5 thou/uL (4.0-11.0)
[2021-06-13 11:20] LABS: ANION GAP 12 mmol/L (7-16); BUN 47 mg/dL (7-18); CALCIUM 8.4 mg/dL (8.5-10.1); CHLORIDE 100 mmol/L (98-107); CO2 26 mmol/L (21-32); CREATININE 6.4 mg/dL (0.6-1.3); GLUCOSE 102 mg/dL (70-99); POTASSIUM 4.7 mmol/L (3.5-5.1); SODIUM 138 mmol/L (136-145)
[2021-06-13 11:29] LABS: ALKALINE PHOSPHATASE 98 U/L (46-116); NT-PRO BRAIN NAT PEPTIDE > 35000 pg/mL (<300); SGOT 23 U/L (15-37); SGPT 11 U/L (30-65); TOTAL BILIRUBIN 0.3 mg/dL (<0.1-1.0); TOTAL PROTEIN 7.4 g/dL (6.4-8.2)
--- NOTE | 2021-06-13 12:22 | EKG ---
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1970 Requested By: Stuart Bojorquez Order Number: [id number] MD: De Iniguez Measurements Intervals [place] Rate: 74 P: 32 [place]: 159 QRS: 51 QRSD: 90 T: 25 QT: 456 QTc: 506 Interpretive Statements Sinus rhythm Consider left ventricular hypertrophy Anterior Q waves, possibly due to LVH artifact noted Prolonged QT interval Compared to ECG 05/22/2021 17:27:40 Q waves now present Myocardial infarct finding now present Electronically Signed On 06-13-2021 12:22:09 CLAIMS SPECIALIST by De Iniguez [email or web address] <ELECTRONICALLY SIGNED> By: De Iniguez MD, FACC 06/13/21 1222 1058 1058 De Iniguez MD, [facility] /EPI
[2021-06-13 16:52] VITALS: BP 159/87
== END 2021-06-13 16:53 | disposition home or self-care (01) ==
LOC: M.ERS 10:39
PROVIDERS: Emergency Medicine Emergency Medical Services
DX: E10.65 Type 1 diabetes mellitus with hyperglycemia (principal); Z20.822 Contact with and (suspected) exposure to COVID-19; E10.22 Type 1 diabetes mellitus with diabetic chronic kidney disease; N18.5 Chronic kidney disease, stage 5; E03.9 Hypothyroidism, unspecified; Z99.2 Dependence on renal dialysis; Z90.711 Acquired absence of uterus with remaining cervical stump; Z90.49 Acquired absence of other specified parts of digestive tract; Z79.899 Other long term (current) drug therapy; Z79.2 Long term (current) use of antibiotics; Z79.82 Long term (current) use of aspirin; Z79.4 Long term (current) use of insulin

== ENCOUNTER 2021-07-24 11:05 | Emergency (ER) | payer MEDICARE, MEDICAID ==
[~2021-07-24] VITALS: Ht 177.8 cm; Wt 68.0 kg
[2021-07-24 11:55] LABS: HEMOGLOBIN 13.5 gm/dL (12.0-15.0); MCHC 33.6 g/dL (28.0-37.0); MCV 92.4 fL (80.0-100.0); MPV 8.3 fl. (7.2-11.1); NUCLEATED RBCS 0 /100WBC; PLATELET COUNT* 183 thou/uL (150-400); RBC 4.33 mil/uL (4.20-5.00); RDW-CV 16.7 % (10.5-14.5); WBC 7.7 thou/uL (4.0-11.0)
[2021-07-24 12:14] LABS: CALCIUM 8.5 mg/dL (8.5-10.1); CREATININE 5.5 mg/dL (0.6-1.3); POTASSIUM 4.2 mmol/L (3.5-5.1)
[2021-07-24 12:19] LABS: ALBUMIN 3.4 g/dL (3.4-5.0); TOTAL BILIRUBIN 0.3 mg/dL (<0.1-1.0); TOTAL PROTEIN 7.6 g/dL (6.4-8.2)
[2021-07-24 12:49] LABS: ABSOLUTE EOSINOPHILS 0.2 thou/uL (0.0-0.7); ABSOLUTE LYMPHOCYTES 0.8 thou/uL (0.8-5.3); ABSOLUTE MONOCYTES 0.2 thou/uL (0.0-1.2); ABSOLUTE NEUTROPHILS 6.5 thou/uL (1.6-8.1)
[2021-07-24 12:50] LABS: PLATELET ESTIMATE ADEQUATE
[2021-07-24 14:12] VITALS: BP 173/60
== END 2021-07-24 14:13 | disposition home or self-care (01) ==
LOC: M.ERS 11:05
PROVIDERS: Emergency Medicine
DX: E16.2 Hypoglycemia, unspecified (principal); E03.9 Hypothyroidism, unspecified; E10.22 Type 1 diabetes mellitus with diabetic chronic kidney disease; N18.5 Chronic kidney disease, stage 5; Z90.710 Acquired absence of both cervix and uterus; Z90.49 Acquired absence of other specified parts of digestive tract; Z79.899 Other long term (current) drug therapy

== ENCOUNTER 2021-07-31 18:05 | Observation (INO) | payer MEDICARE, MEDICAID ==
[~2021-07-31] VITALS: Ht 177.8 cm; Wt 68.0 kg
[2021-07-31 18:19] VITALS: BP 187/96
[2021-07-31 19:02] LABS: ABSOLUTE BASOPHILS 0.1 thou/uL (0.0-0.2); ABSOLUTE EOSINOPHILS 0.2 thou/uL (0.0-0.7); ABSOLUTE LYMPHOCYTES 0.9 thou/uL (0.8-5.3); ABSOLUTE MONOCYTES 0.4 thou/uL (0.0-1.2); ABSOLUTE NEUTROPHILS 5.3 thou/uL (1.6-8.1); BASOPHILS 1.4 %; EOSINOPHILS 3.4 %; HEMATOCRIT 38.3 % (37.0-47.0); HEMOGLOBIN 12.4 gm/dL (12.0-15.0); LYMPHOCYTES 13.4 %; MCH 30.3 pg (26.0-34.0); MCHC 32.3 g/dL (28.0-37.0); MONOCYTES 5.3 %; MPV 8.7 fl. (7.2-11.1); NUCLEATED RBCS 0 /100WBC; PLATELET COUNT* 176 thou/uL (150-400); POLYS 76.5 %; RBC 4.07 mil/uL (4.20-5.00)
[2021-07-31 19:07] LABS: CALCIUM 8.1 mg/dL (8.5-10.1); CREATININE 4.8 mg/dL (0.6-1.3); POTASSIUM 4.3 mmol/L (3.5-5.1)
[2021-07-31 19:11] LABS: ALBUMIN 3.3 g/dL (3.4-5.0); TOTAL BILIRUBIN 0.4 mg/dL (<0.1-1.0); TOTAL PROTEIN 7.3 g/dL (6.4-8.2)
[2021-08-01 00:25] VITALS: BP 171/87
--- NOTE | 2021-08-01 11:16 | EKG ---
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1970 Requested By: Greg Desir Order Number: [id number] MD: De Iniguez Measurements Intervals [place] Rate: 66 P: 38 [place]: 176 QRS: -1 QRSD: 88 T: 63 QT: 452 QTc: 474 Interpretive Statements Sinus rhythm Probable left atrial enlargement nonspecific st segment changes Probable left ventricular hypertrophy Compared to ECG 06/13/2021 10:58:00 Q waves no longer present Prolonged QT interval no longer present Electronically Signed On 08-01-2021 11:15:52 SENIOR POWER PLANT OPERATOR by De Iniguez [email or web address] <ELECTRONICALLY SIGNED> By: De Iniguez MD, FAC 08/01/21 1115 1828 1828 De Iniguez MD, [facility] /EPI
== END 2021-08-01 00:25 | disposition home or self-care (01) ==
LOC: M.ERS 18:05 → M.TBA-ER 18:52
PROVIDERS: Emergency Medicine; ADMIT Internal Medicine; ATTEND Internal Medicine
DX: E10.649 Type 1 diabetes mellitus with hypoglycemia without coma (principal); Z20.822 Contact with and (suspected) exposure to COVID-19; E10.22 Type 1 diabetes mellitus with diabetic chronic kidney disease; I12.0 Hypertensive chronic kidney disease with stage 5 chronic kidney disease or end stage renal disease; N18.5 Chronic kidney disease, stage 5; E03.9 Hypothyroidism, unspecified; Z85.41 Personal history of malignant neoplasm of cervix uteri; Z79.82 Long term (current) use of aspirin; Z79.4 Long term (current) use of insulin; Z79.899 Other long term (current) drug therapy